=== PATIENT | female | born 1965 | race Caucasian/White ===

== ENCOUNTER 2016-11-12 15:51 | Emergency (ER) | payer MEDICAID, OTHER ==
[2016-11-12] MEDS ORDERED: Ketorolac 30 MG/ML SDV IVPUSH ONE (16:28)
[2016-11-12] MEDS ORDERED: Sodium Chloride 0.9% 1,000 ML IV ONE (16:28)
--- NOTE | 2016-11-12 16:56 | EDM.PDOC ---
ED HPI GENERAL MEDICAL PROBLEM - General Chief Complaint: General Stated Complaint: PAIN ALL OVER BODY Time Seen by Provider: 11/12/16 16:20 Source of Information: Reports: Patient History Limitations: Reports: No Limitations - History of Present Illness INITIAL COMMENTS - FREE TEXT/NARRATIVE: History of present illness: [31-year-old female comes in complaining of global ice joint pain. Patient indicates that she doesn't OLD age or why but she is having generalized pain. Patient indicates she knows she has an injury in her left knee that is scheduled to be repaired. Patient indicates that it is a meniscal tear] Review of systems: As per history of present illness and below otherwise all systems reviewed and negative. Past medical history: As per history of present illness and as reviewed below otherwise noncontributory. Surgical history: As per history of present illness and as reviewed below otherwise noncontributory. Social history: No reported history of drug or alcohol abuse. Family history: As per history of present illness and as reviewed below otherwise noncontributory. Physical exam: HEENT: Atraumatic, normocephalic, pupils reactive, negative for conjunctival pallor or scleral icterus, mucous membranes moist, throat clear, neck supple, nontender, trachea midline. Lungs: Clear to auscultation, breath sounds equal bilaterally, chest nontender. Heart: S1S2, regular, negative for clicks, rubs, or JVD. Abdomen: Soft, nondistended, nontender. Negative for masses or hepatosplenomegaly. Negative for costovertebral tenderness. Pelvis: Stable nontender. Genitourinary: Deferred. Rectal: Deferred. Extremities: Atraumatic, negative for cords or calf pain. Neurovascular unremarkable. Neuro: Awake, alert, oriented. Cranial nerves II through XII unremarkable. Cerebellum unremarkable. Motor and sensory unremarkable throughout. Exam nonfocal. Global assessment is benign save the subjective complaint as noted in history of present illness Diagnostics: [CBC, CMP, ESR] Therapeutics: [IV fluid, Toradol] Impression: [Arthritis] Plan: [Meloxicam] Definitive disposition and diagnosis as appropriate pending reevaluation and review of above. Generalized Pain Score (Numeric/FACES): 8 - Related Data Allergies Allergy/AdvReac Type Severity Reaction Status Date / Time No Known Allergies Allergy Verified 05/30/16 16:29 Home Meds: Home Meds FLUoxetine [PROzac] 80 mg PO DAILY 05/30/16 [History] Omeprazole Magnesium [Prilosec Otc] 20 mg PO DAILY 05/30/16 [History] Levothyroxine Sodium [Synthroid] 25 mcg PO DAILY 11/08/16 [History] Methylphenidate HCl [Methylphenidate ER] 36 mg PO ASDIRECTED 11/08/16 [History] Naproxen 500 mg PO ASDIRECTED PRN 11/08/16 [History] Phentermine HCl 37.5 mg PO ASDIRECTED 11/08/16 [History] buPROPion HCl [Wellbutrin Xl] 300 mg PO DAILY 11/08/16 [History] cloNIDine HCl [Catapres] 0.2 mg PO DAILY 11/08/16 [History] Meloxicam 7.5 mg PO BID #30 tablet 11/12/16 [Rx] Past Medical History HEENT History: Reports: Other (See Below) Other HEENT History: wears glasses, has top and bottom denture Gastrointestinal History: Reports: Gastritis, GERD Genitourinary History: Reports: None Musculoskeletal History: Reports: Arthritis Neurological History: Reports: Migraines Psychiatric History: Reports: Anxiety, Depression Endocrine/Metabolic History: Reports: Hypothyroidism, Obesity/BMI 30+ Hematologic History: Reports: Anemia - Past Surgical History Head Surgeries/Procedures: Reports: None Female Surgical History: Reports: Tubal Ligation Social & Family History - Family History Family Medical History: Noncontributory - Tobacco Use Smoking Status *Q: Never Smoker Second Hand Smoke Exposure: No - Caffeine Use Caffeine Use: Reports: Coffee - Recreational Drug Use Recreational Drug Use: No ED ROS GENERAL - Review of Systems Review Of Systems: See Below (See history of present illness) ED EXAM, GENERAL - Physical Exam Exam: See Below (See history of present illness) Course - Vital Signs Last Recorded V/S: Last Vital Signs Temp 36.6 C 11/12/16 16:06 Pulse 79 11/12/16 16:06 Resp 18 11/12/16 16:06 BP 139/81 11/12/16 16:06 Pulse Ox 97 11/12/16 16:06 - Orders/Labs/Meds Labs: Laboratory Tests 11/12/16 11/12/16 11/12/16 Range/Units 16:35 16:35 16:45 WBC 5.40 (4.0-11.0) K/uL RBC 4.42 (4.30-5.90) M/uL Hgb 12.6 (12.0-16.0) g/dL Hct 38.2 (36.0-46.0) % MCV 86.4 (80.0-98.0) fL MCH 28.5 (27.0-32.0) pg MCHC 33.0 (31.0-37.0) g/dL RDW Std Deviation 46.8 (28.0-62.0) fl RDW Coeff of Mehrdad 15 (11.0-15.0) % Plt Count 269 (150-400) K/uL MPV 9.10 (7.40-12.00) fL Neut % (Auto) 60.4 (48.0-80.0) % Lymph % (Auto) 26.5 (16.0-40.0) % Barron % (Auto) 10.4 (0.0-15.0) % Eos % (Auto) 2.0 (0.0-7.0) % Baso % (Auto) 0.7 (0.0-1.5) % Neut # (Auto) 3.3 (1.4-5.7) K/uL Lymph # (Auto) 1.4 (0.6-2.4) K/uL Barron # (Auto) 0.6 (0.0-0.8) K/uL Eos # (Auto) 0.1 (0.0-0.7) K/uL Baso # (Auto) 0.0 (0.0-0.1) K/uL Nucleated RBC % 0.0 /100WBC Nucleated RBCs # 0 K/uL ESR 17 (0-29) mm/hr Sodium 139 (136-146) mmol/L Potassium 3.8 (3.5-5.1) mmol/L Chloride 110 (98-110) mmol/L Carbon Dioxide 24 (21-31) mmol/L BUN 15 (6.0-23.0) mg/dL Creatinine 0.9 (0.6-1.5) mg/dL Est Cr Clr Drug Dosing 69.23 mL/min Estimated GFR (MDRD) > 60.0 ml/min Glucose 93 (60-110) mg/dL Calcium 8.9 (8.8-10.8) mg/dL Total Bilirubin 0.3 (0.1-1.5) mg/dL AST 57 H (5-40) IU/L ALT 58 H (8-54) IU/L Alkaline Phosphatase 104 (40-150) Total Protein 7.6 (6.0-8.0) g/dL Albumin 3.8 (3.5-5.0) g/dL Globulin 3.8 H (2.0-3.5) g/dL Albumin/Globulin Ratio 1.0 L (1.3-2.8) Amylase 62 (10-90) U/L Lipase 14 (7-80) U/L Urine Color YELLOW Urine Appearance CLEAR Urine pH 6.5 (5.0-8.0) Ur Specific U[place]all 1.010 (1.001-1.035) Urine Protein NEGATIVE (NEGATIVE) mg/dL Urine Glucose (UA) NEGATIVE (NEGATIVE) mg/dL Urine Ketones NEGATIVE (NEGATIVE) mg/dL Urine Occult Blood NEGATIVE (NEGATIVE) Urine Nitrite NEGATIVE (NEGATIVE) Urine Bilirubin NEGATIVE (NEGATIVE) Urine Urobilinogen 1.0 (<2.0) EU/dL Ur Leukocyte Esterase NEGATIVE (NEGATIVE) Urine RBC 0-1 (0-2/HPF) Urine WBC 0-2 (0-5/HPF) Ur Epithelial Cells FEW (NONE-FEW) Amorphous Sediment MODERATE (NEGATIVE) Urine Bacteria FEW (NEGATIVE) Meds: Medications Discontinued Medications Generic Name Dose Route Start Last Admin Trade Name Freq PRN Reason Stop Dose Admin Sodium Chloride 1,000 mls @ 999 mls/hr 11/12/16 16:28 11/12/16 16:56 Normal Saline IV 11/12/16 17:28 999 mls/hr STAT ONE Administration Ketorolac Tromethamine 30 mg 11/12/16 16:28 11/12/16 16:57 Toradol IVPUSH 11/12/16 16:29 30 mg ONETIME ONE Administration Departure - Departure Time of Disposition: 17:41 Disposition: Home, Self-Care 01 Condition: Good Clinical Impression: Joint pain - Discharge Information Forms: ED Department Discharge Additional Instructions: The following information is given to patients seen in the emergency department who are being discharged to home. This information is to outline your options for follow-up care. We provide all patients seen in our emergency department with a follow-up referral. The need for follow-up, as well as the timing and circumstances, are variable depending upon the specifics of your emergency department visit. If you don't have a primary care physician on staff, we will provide you with a referral. We always advise you to contact your personal physician following an emergency department visit to inform them of the circumstance of the visit and for follow-up with them and/or the need for any referrals to a consulting specialist. The emergency department will also refer you to a specialist when appropriate. This referral assures that you have the opportunity for follow-up care with a specialist. All of these measure are taken in an effort to provide you with optimal care, which includes your follow-up. Under all circumstances we always encourage you to contact your private physician who remains a resource for coordinating your care. When calling for follow-up care, please make the office aware that this follow-up is from your recent emergency room visit. If for any reason you are refused follow-up, please contact the [facility] Emergency Department at and asked to speak to the emergency department charge nurse. You're being prescribed a new anti-inflammatory use the meloxicam instead of the naproxen Increase her hydration decrease any sugar intake Follow-up with primary care provider one to 2 days Return to ED as needed as discussed
[2016-11-12 17:11] LABS: CHLORIDE,CL 110 mmol/L (98-110); SODIUM,NA 139 mmol/L (136-146)
[2016-11-12 18:37] VITALS: BP 133/73
== END 2016-11-12 18:08 | disposition home or self-care (01) ==
LOC: MW.ED 15:51
DX: M19.90 Unspecified osteoarthritis, unspecified site (principal); K21.9 Gastro-esophageal reflux disease without esophagitis; F41.9 Anxiety disorder, unspecified; F32.9 Major depressive disorder, single episode, unspecified; E03.9 Hypothyroidism, unspecified; E66.9 Obesity, unspecified; Z79.899 Other long term (current) drug therapy; Z86.2 Personal history of diseases of the blood and blood-forming organs and certain disorders involving the immune mechanism
CPT/HCPCS: 36415; 80053; 81001; 82150; 83690; 85025; 85652; 96361; 96374; 99283; J1885; J7040; 99282

== ENCOUNTER 2016-11-21 08:48 | Day surgery (SDC) | payer MEDICAID, OTHER ==
[~2016-11-21 08:48] MED LIST: Lactated Ringers 1,000 ML IV SCH; Lidocaine 2% 5 ML SDV ONE; Propofol 200 MG/20 ML SDV ONE; Sodium Chloride 0.9% 10 ML Syringe FLUSH PRN; Sodium Chloride 0.9% 2.5 ML Syringe FLUSH PRN; fentaNYL 100 MCG/2 ML SDV ONE
--- NOTE | 2016-11-21 09:49 | PCM.PREANE ---
Preanesthetic Assessment - Anesthesia/Transfusion/Family Hx Anesthesia History: Prior Anesthesia Without Reaction Family History of Anesthesia Reaction: No Transfusion History: No Prior Transfusion(s) Intubation History: Unknown - Review of Systems General: No Symptoms Pulmonary: No Symptoms Cardiovascular: No Symptoms Gastrointestinal: Other (occult blood positive feces) Neurological: No Symptoms Other: Reports: None - Physical Assessment NPO Status Date: 11/20/16 NPO Status Time: 23:30 O2 Sat by Pulse Oximetry: 100 Respiratory Rate: 16 Vital Signs: Last Vital Signs Temp 36.4 C 11/21/16 09:17 Pulse 74 11/21/16 09:17 Resp 16 11/21/16 09:17 BP 133/69 11/21/16 09:17 Pulse Ox 100 11/21/16 09:17 Height: 1.68 m Weight: 90.718 kg ASA Class: 2 Mental Status: Alert & Oriented x3 Airway Class: Mallampati = 2 Dentition: Reports: Partial (upper and lower (sides)) Thyro-Mental Finger Breadths: 3 Mouth Opening Finger Breadths: 3 ROM/Head Extension: Full Lungs: Clear to auscultation, Normal respiratory effort Cardiovascular: Regular Rate, Regular Rhythm - Lab Values: Laboratory Last Values Urine HCG, Qual NEGATIVE (NEGATIVE) 11/21/16 08:52 - Allergies Allergies/Adverse Reactions: Allergies Allergy/AdvReac Type Severity Reaction Status Date / Time No Known Allergies Allergy Verified 05/30/16 16:29 - Blood Blood Available: No - Anesthesia Plan Pre-Op Medication Ordered: None - Acknowledgements Anesthesia Type Planned: MAC Pt an Appropriate Candidate for the Planned Anesthesia: Yes Alternatives and Risks of Anesthesia Discussed w Pt/Guardian: Yes Pt/Guardian Understands and Agrees with Anesthesia Plan: Yes PreAnesthesia Questionnaire HEENT History: Reports: Other (See Below) Other HEENT History: wears glasses, has top and bottom denture Gastrointestinal History: Reports: Colon Polyp, Gastritis, GERD Genitourinary History: Reports: None Musculoskeletal History: Reports: Arthritis Neurological History: Reports: Migraines Psychiatric History: Reports: ADD, Anxiety, Bipolar, Depression, Other (See Below) (insomnia) Endocrine/Metabolic History: Reports: Hypothyroidism, Obesity/BMI 30+ Hematologic History: Reports: Anemia - Past Surgical History Head Surgeries/Procedures: Reports: None GI Surgical History: Reports: Colonoscopy, EGD Female Surgical History: Reports: Tubal Ligation - SUBSTANCE USE Smoking Status *Q: Never Smoker Second Hand Smoke Exposure: No Recreational Drug Use History: No - HOME MEDS Home Medications: Home Meds FLUoxetine [PROzac] 80 mg PO DAILY 05/30/16 [History] Omeprazole Magnesium [Prilosec Otc] 20 mg PO DAILY 05/30/16 [History] Levothyroxine Sodium [Synthroid] 25 mcg PO DAILY 11/08/16 [History] Methylphenidate HCl [Methylphenidate ER] 36 mg PO ASDIRECTED 11/08/16 [History] Naproxen 500 mg PO ASDIRECTED PRN 11/08/16 [History] Phentermine HCl 37.5 mg PO ASDIRECTED 11/08/16 [History] buPROPion HCl [Wellbutrin Xl] 300 mg PO DAILY 11/08/16 [History] cloNIDine HCl [Catapres] 0.2 mg PO DAILY 11/08/16 [History] Meloxicam 7.5 mg PO BID #30 tablet 11/12/16 [Rx] - CURRENT (IN HOUSE) MEDS Current Meds: Current Medications Lactated Ringer's (Ringers, Lactated) 1,000 mls @ 125 mls/hr IV ASDIRECTED [facility] Last Admin: 11/21/16 09:07 Dose: 125 mls/hr Sodium Chloride (Saline Flush) 10 ml FLUSH ASDIRECTED PRN PRN Reason: Keep Vein Open Sodium Chloride (Saline Flush) 2.5 ml FLUSH ASDIRECTED PRN PRN Reason: Keep Vein Open Discontinued Medications Fentanyl (Sublimaze) Confirm Administered Dose 100 mcg .ROUTE .STK-MED ONE Stop: 11/21/16 07:37 Lidocaine (Xylocaine-Mpf 2%) Confirm Administered Dose 5 ml .ROUTE .STK-MED ONE Stop: 11/21/16 07:37 Propofol (Diprivan 20 Ml) Confirm Administered Dose 400 mg .ROUTE .STK-MED ONE Stop: 11/21/16 07:37
[2016-11-21] MEDS ORDERED: Midazolam 1 MG/ML 2 ML SDV ONE (10:45)
[2016-11-21] MEDS ORDERED: Glycopyrrolate 0.2 MG/ML SDV ONE (10:55)
[2016-11-21] MEDS ORDERED: Propofol 200 MG/20 ML SDV ONE (10:55)
--- NOTE | 2016-11-21 11:16 | PCM.OPNOTE ---
- General Post-Op/Procedure Note Date of Surgery/Procedure: 11/21/16 Operative Procedure(s): Diagnostic EGD & Colonoscopy Findings: 1. Gastritis, 2. Normal appearing colon Pre Op Diagnosis: 1. FOBT positive, 2. Diagnostic EGD & Colonoscopy Post-Op Diagnosis: 1. Gastritis, 2. Normal appearing colon Anesthesia Technique: General LMA Primary Surgeon: Michelle Zarate Pathology: 1 sample sent from each of Pyloris, Antrum, Body and Fundus EBL in mLs: 0 Complications: None Condition: Good
[2016-11-21 11:46] VITALS: BP 134/62
--- NOTE | 2016-11-22 00:32 | OR ---
SURGEON: CARRI ARAUJO MD DATE OF PROCEDURE: 11/21/2016 PREOPERATIVE DIAGNOSIS: Positive fecal occult blood test. POSTOPERATIVE DIAGNOSIS: Gastritis. PROCEDURE PERFORMED: Diagnostic EGD and colonoscopy. TECHNICAL STENOGRAPHER: Dr. Jorge France, hvac technician residential. ANESTHESIA: General LMA. INSTRUMENT USED: Olympus endoscope and Olympus colonoscope. EXTENT OF EXAM: To the second portion of the duodenum, to the cecum. PREPARATION: Good. LIMITATIONS: None. INDICATIONS: The patient is a 51-year-old female, who presents with a positive fecal occult blood test. The patient has a history of reflux and takes omeprazole. The patient has had a colonoscopy done in the past but does not remember the results of this. We discussed the need for diagnostic EGD and colonoscopy. I discussed the procedure as well as expected perioperative course. I discussed the risks, including bleeding, infection, or perforation. The patient verbalized understanding and wishes to proceed. PROCEDURE IN DETAIL: The patient was brought into the endoscopy suite and placed in a beach chair position. A time-out was completed verifying the patient's name, age, date of , allergies, and procedure to be performed. General LMA anesthesia was induced. Continuous oxygen was provided throughout the case through the LMA device. After adequate sedation was achieved, I advanced my scope through the specialized LMA device into the esophagus. The scope was then advanced under direct visualization to the level of 2nd portion of duodenum. This appeared normal and a photograph was taken. The scope was then brought back and I examined the remainder of the upper GI tract. The duodenum appeared normal. On inspection of the gastric mucosa, it appeared inflamed and nodular suggestive of moderate to severe gastritis. Photograph was taken of the pylorus and the GE junction, which all appeared normal. Multiple biopsies were taken of the gastric mucosa and sent to pathology. The biopsy sites were at the pylorus, antrum, fundus, and body. The scope was then brought into the esophagus and a photograph was taken of the GE junction, which appeared normal. The distal esophagus did not show any evidence of inflammation or ulceration. The remainder of the esophageal mucosa appeared free of pathology. The scope was then removed from the patient and this portion of the procedure terminated. The patient was then placed in the left lateral decubitus position. A digital rectal exam was performed, which was normal. A well lubricated colonoscope was then inserted into the rectum and advanced under direct visualization to the level of the cecum. The cecum was identified by both visual and anatomic landmarks. A photograph was taken of the cecal cap. I attempted to retroflex the scope within the cecum, however, was unable to do so due to looping of the scope more proximally. The scope was straightened out and fully withdrawn while examining the color, texture, anatomy, and integrity of mucosa from the cecum to the anal canal. This revealed normal colonic mucosa. The scope was then brought into the rectum and retroflexed to allow visualization of the anal canal opening. This appeared normal and the photographs were taken. The scope was straightened out and removed from the patient. The cecum to anus time was 9 minutes. The patient tolerated the procedure well and was taken to PACU in stable condition. ENDOSCOPIC DIAGNOSIS: Gastritis. RECOMMENDATIONS: I will start the patient on pantoprazole and DC her omeprazole. I will also start her on sucralfate. The patient should see me in 2 weeks and will follow up with her regarding the endoscopic biopsy pathology. DIVINA MCGUIRE /[id number] HUDSON
== END 2016-11-21 11:55 | disposition home or self-care (01) ==
LOC: MW.SDS 08:48
PROVIDERS: ATTEND Surgery
PROC: 0DJD8ZZ Inspection of Lower Intestinal Tract, Via Natural or Artificial Opening Endoscopic (ICD-10-PCS; principal; 2016-11-21)
PROC: 0DB78ZX Excision of Stomach, Pylorus, Via Natural or Artificial Opening Endoscopic, Diagnostic (ICD-10-PCS; 2016-11-21)
DX: K29.40 Chronic atrophic gastritis without bleeding (principal); M17.12 Unilateral primary osteoarthritis, left knee; F31.9 Bipolar disorder, unspecified; K21.9 Gastro-esophageal reflux disease without esophagitis; E66.9 Obesity, unspecified; E03.9 Hypothyroidism, unspecified; F90.9 Attention-deficit hyperactivity disorder, unspecified type; F41.9 Anxiety disorder, unspecified; Z98.51 Tubal ligation status; Z98.890 Other specified postprocedural states; Z79.899 Other long term (current) drug therapy; Z68.36 Body mass index [BMI] 36.0-36.9, adult
CPT/HCPCS: 43239; 45378; 81025; 88305; 88312; J2250; J3010; J7120; 00740; J2704

== ENCOUNTER 2016-12-03 10:06 | Day surgery (SDC) | payer MEDICAID, OTHER ==
[~2016-12-03 10:06] MED LIST changes: +Acetaminophen/HYDROcodone 325-5 MG Tab PO PRN; +Lidocaine 1% 50 ML MDV ONE; -Lidocaine 2% 5 ML SDV ONE; -Propofol 200 MG/20 ML SDV ONE; -Sodium Chloride 0.9% 10 ML Syringe FLUSH PRN; -Sodium Chloride 0.9% 2.5 ML Syringe FLUSH PRN; +ceFAZolin 2 GM in Premix Bag 1 BAG IV SCH; -fentaNYL 100 MCG/2 ML SDV ONE
[2016-12-03] MEDS ORDERED: fentaNYL 100 MCG/2 ML SDV ONE ×2 (10:26→11:28)
[2016-12-03] MEDS ORDERED: Propofol 200 MG/20 ML SDV ONE (10:26)
[2016-12-03] MEDS ORDERED: Ondansetron 4 MG/2 ML SDV ONE (10:26)
[2016-12-03] MEDS ORDERED: Midazolam 1 MG/ML 2 ML SDV ONE (10:26)
--- NOTE | 2016-12-03 11:10 | PCM.PREANE ---
Preanesthetic Assessment - Procedure Proposed Procedure: Arthroscopy left knee - Anesthesia/Transfusion/Family Hx Anesthesia History: Prior Anesthesia Without Reaction Family History of Anesthesia Reaction: No Transfusion History: No Prior Transfusion(s) Intubation History: Unknown - Review of Systems General: Other Pulmonary: No Symptoms Cardiovascular: No Symptoms Gastrointestinal: Other (GERD tx with protonix) Neurological: Headache (hx of migraine HAs) Other: Reports: Depression (bipolar diagnosis) - Physical Assessment NPO Status Date: 12/02/16 NPO Status Time: 22:00 O2 Sat by Pulse Oximetry: 99 Respiratory Rate: 16 Vital Signs: Last Vital Signs Temp 97.2 F 12/03/16 10:18 Pulse 69 12/03/16 10:18 Resp 16 12/03/16 10:18 BP 126/66 12/03/16 10:18 Pulse Ox 99 12/03/16 10:18 Height: 5 ft 6 in Weight: 200 lb ASA Class: 2 Mental Status: Alert & Oriented x3 Airway Class: Mallampati = 1 Dentition: Reports: Normal Dentition Thyro-Mental Finger Breadths: 3 Mouth Opening Finger Breadths: 3 ROM/Head Extension: Full Lungs: Clear to Auscultation, Normal Respiratory Effort Cardiovascular: Regular Rate, Regular Rhythm, No Murmurs - Lab Values: Laboratory Last Values Urine HCG, Qual NEGATIVE (NEGATIVE) 12/03/16 10:08 - Allergies Allergies/Adverse Reactions: Allergies Allergy/AdvReac Type Severity Reaction Status Date / Time No Known Allergies Allergy Verified 05/30/16 16:29 - Blood Blood Available: No Product(s) Available: None - Anesthesia Plan Pre-Op Medication Ordered: Antacids - Acknowledgements Anesthesia Type Planned: General Anesthesia (LMA vs OETT) Pt an Appropriate Candidate for the Planned Anesthesia: Yes Alternatives and Risks of Anesthesia Discussed w Pt/Guardian: Yes Pt/Guardian Understands and Agrees with Anesthesia Plan: Yes PreAnesthesia Questionnaire HEENT History: Reports: Other (See Below) Other HEENT History: wears glasses, has top and bottom denture Gastrointestinal History: Reports: Colon Polyp, Gastritis, GERD Genitourinary History: Reports: None Musculoskeletal History: Reports: Arthritis Neurological History: Reports: Migraines Psychiatric History: Reports: ADD, Anxiety, Bipolar, Depression, Other (See Below) Endocrine/Metabolic History: Reports: Hypothyroidism, Obesity/BMI 30+ Hematologic History: Reports: Anemia - Past Surgical History Head Surgeries/Procedures: Reports: None GI Surgical History: Reports: Colonoscopy, EGD Female Surgical History: Reports: Tubal Ligation - SUBSTANCE USE Smoking Status *Q: Never Smoker Second Hand Smoke Exposure: No Recreational Drug Use History: No - HOME MEDS Home Medications: Home Meds FLUoxetine [PROzac] 80 mg PO DAILY 05/30/16 [History] Levothyroxine Sodium [Synthroid] 25 mcg PO DAILY 11/08/16 [History] Methylphenidate HCl [Methylphenidate ER] 36 mg PO ASDIRECTED 11/08/16 [History] Naproxen 500 mg PO ASDIRECTED PRN 11/08/16 [History] Phentermine HCl 37.5 mg PO ASDIRECTED 11/08/16 [History] buPROPion HCl [Wellbutrin Xl] 300 mg PO DAILY 11/08/16 [History] cloNIDine HCl [Catapres] 0.2 mg PO DAILY 11/08/16 [History] Meloxicam 7.5 mg PO BID #30 tablet 11/12/16 [Rx] Pantoprazole [ProTONIX] 40 mg PO ACBREAKFAST #30 tab.cr 11/21/16 [Rx] Sucralfate 1 gm PO TIDAC #42 tablet 11/21/16 [Rx] - CURRENT (IN HOUSE) MEDS Current Meds: Current Medications Hydrocodone Bitart/Acetaminophen (Sugar Tree 325-5 Mg) 1 - 2 tab PO Q4H PRN PRN Reason: Pain Lactated Ringer's (Ringers, Lactated) 1,000 mls @ 100 mls/hr IV ASDIRECTED [facility] Last Admin: 12/03/16 10:26 Dose: 100 mls/hr Cefazolin Sodium/Dextrose 2 gm (/ Premix) 50 mls @ 100 mls/hr IV ONCALL [facility] Discontinued Medications Hydrocodone Bitart/Acetaminophen ([place] 325-5 Mg) 1 - 2 tab PO Q4H PRN PRN Reason: Pain Fentanyl (Sublimaze) Confirm Administered Dose 100 mcg .ROUTE .STK-MED ONE Stop: 12/03/16 10:27 Lactated Ringer's (Ringers, Lactated) 1,000 mls @ 100 mls/hr IV ASDIRECTED [facility] Cefazolin Sodium/Dextrose 2 gm (/ Premix) 50 mls @ 100 mls/hr IV ONCALL [facility] Lidocaine HCl (Xylocaine 1%) Confirm Administered Dose 50 ml .ROUTE .STK-MED ONE Stop: 12/03/16 07:39 Midazolam HCl (Versed 1 Mg/Ml) Confirm Administered Dose 2 mg .ROUTE .STK-MED ONE Stop: 12/03/16 10:27 Ondansetron HCl (Zofran) Confirm Administered Dose 4 mg .ROUTE .STK-MED ONE Stop: 12/03/16 10:27 Propofol (Diprivan 20 Ml) Confirm Administered Dose 200 mg .ROUTE .STK-MED ONE Stop: 12/03/16 10:27
[2016-12-03] MEDS ORDERED: Famotidine 20 MG/2 ML SDV ONE (11:21)
[2016-12-03] MEDS ORDERED: Pantoprazole 40 MG in Sodium Chloride 0.9% 10 ML IVPUSH ONE (11:30)
[2016-12-03] MEDS ORDERED: fentaNYL 100 MCG/2 ML SDV IVPUSH PRN (11:31)
[2016-12-03] MEDS ORDERED: Dexamethasone 4 MG/ML 5 ML MDV ONE (11:32)
--- NOTE | 2016-12-03 11:59 | PCM.OPNOTE ---
- General Post-Op/Procedure Note Date of Surgery/Procedure: 12/03/16 Operative Procedure(s): L knee arthroscopy with partial medial menisectomy Post-Op Diagnosis: DJD left knee. Left knee medial meniscus tear Anesthesia Technique: General LMA Primary Surgeon: Arcelia Martines [employer] Mason: Anuradha Mohamud in mLs: 5 Condition: Good Free Text/Narrative:: tt=13 min #[id number]
--- NOTE | 2016-12-03 12:26 | OR ---
SURGEON: Arcelia Martines MD DATE OF PROCEDURE: 12/03/2016 PREOPERATIVE DIAGNOSIS: Left knee medial meniscus tear. POSTOPERATIVE DIAGNOSES: 1. Left knee medial meniscus tear. 2. Degenerative joint disease, left knee. PROCEDURE: Left knee arthroscopy with partial medial meniscectomy. PROVIDER RELATIONS SPECIALIST: Anuradha Mohamud PA-C. ANESTHESIA: General. ESTIMATED BLOOD LOSS: 5 mL. TOURNIQUET TIME: 13 minutes. COMPLICATIONS: None. DVT PROPHYLAXIS: Not indicated. IMPLANTS USED: None. BRIEF HISTORY: Tiffany is a 51-year-old female, who has had complaint of progressive left knee pain. She had failed conservative treatment. An MRI did show a tear of the medial meniscus. Due to her lack of response to conservative treatment, I did recommend surgical intervention. The risks and goals of procedure were discussed with the patient and were documented preoperatively. She agreed to proceed. DESCRIPTION OF PROCEDURE: The patient was properly identified and brought to the operating room. She was transferred from the OR cart and placed on the operating table in supine position. General anesthesia was administered. After adequate anesthesia was obtained, a well-padded tourniquet was applied to the left lower extremity. The left lower extremity was then prepped in standard fashion using ChloraPrep solution. It was then sterilely draped. A time-out was performed to ensure correct site and procedure. Preoperative antibiotics were given. The surgical site had been marked preoperatively. An Esmarch was used to exsanguinate the left lower extremity and the tourniquet was inflated to 250 mmHg. A lateral portal arthrotomy was established. Blunt trocar and cannula were introduced into the suprapatellar pouch. Camera, inflow, and outflow were assembled. She showed no signs of synovitis. The patellofemoral joint was visualized. Mild grade 1 to grade 2 chondromalacia was noted diffusely. The patella appeared to track centrally. I then extended down the lateral and medial gutter. No loose bodies were identified. I then entered the medial compartment. A medial portal arthrotomy was established. A blunt probe was inserted. The meniscus was probed. She was found to have a radial tear along the posterior horn of the meniscus. This was resected using a combination of biters and shaver. The meniscus was again probed and found to be stable. She showed diffuse grade 2 chondromalacia along the medial femoral condyle as well as the medial tibial plateau. I then entered the notch. Both the ACL and PCL were visualized and probed and found to be intact. I then entered the lateral compartment. The lateral meniscus was probed. It had minor degenerative fraying centrally, however, no instability was noted. Grade 2 to grade 3 chondromalacia was noted along the medial aspect of the lateral tibial plateau. No loose cartilaginous flaps were appreciated. The lateral femoral condyle showed grade 2 chondromalacia diffusely. Instruments were then removed from the knee. The portal sites were closed with 3-0 nylon. Lidocaine 1% was injected along the portal tracts. Xeroform gauze was placed over the wound and a bulky dressing was applied. The tourniquet was then deflated. She was awakened from her anesthetic and transferred back to the operating room cart. She was brought to recovery room in stable condition. All needle and sponge counts were correct. CARLA / SHAYLA /[id number]
[2016-12-03 13:11] VITALS: BP 127/67
--- NOTE | 2016-12-03 14:04 | PCM.POSTAN ---
POST ANESTHESIA ASSESSMENT - MENTAL STATUS Mental Status: Alert, Oriented - RESPIRATORY Respiratory Status: Respiratory Rate WNL, Airway Patent, O2 Saturation Stable - CARDIOVASCULAR CV Status: Pulse Rate WNL, Blood Pressure Stable - GASTROINTESTINAL GI Status: No Symptoms - POST OP HYDRATION Hydration Status: Adequate & Stable
== END 2016-12-03 13:55 | disposition home or self-care (01) ==
LOC: MW.SDS 10:06
PROVIDERS: ATTEND Orthopaedic Surgery
PROC: 0SBD4ZZ Excision of Left Knee Joint, Percutaneous Endoscopic Approach (ICD-10-PCS; principal; 2016-12-03)
DX: S83.242A Other tear of medial meniscus, current injury, left knee, initial encounter (principal); M65.862 Other synovitis and tenosynovitis, left lower leg; M94.262 Chondromalacia, left knee; M17.12 Unilateral primary osteoarthritis, left knee; K21.9 Gastro-esophageal reflux disease without esophagitis; M19.90 Unspecified osteoarthritis, unspecified site; F41.9 Anxiety disorder, unspecified; F31.9 Bipolar disorder, unspecified; E03.9 Hypothyroidism, unspecified; E66.9 Obesity, unspecified; Z87.19 Personal history of other diseases of the digestive system; Z98.51 Tubal ligation status; Z98.890 Other specified postprocedural states; Z79.899 Other long term (current) drug therapy; Z68.35 Body mass index [BMI] 35.0-35.9, adult
CPT/HCPCS: 29881; 81025; A9270; J0690; J1100; J2250; J2405; J3010; J7120; 01400; 88304; J2704

== ENCOUNTER 2017-06-21 19:57 | Emergency (ER) | payer MEDICAID ==
--- NOTE | 2017-06-21 20:21 | EDM.PDOC ---
ED HPI GENERAL MEDICAL PROBLEM - General Chief Complaint: ENT Problem Stated Complaint: PT HAS TOOTHACHE Time Seen by Provider: 06/21/17 20:13 - History of Present Illness INITIAL COMMENTS - FREE TEXT/NARRATIVE: HISTORY AND PHYSICAL: History of present illness: Patient 52-year-old female presents with a concern of dentalgia she was recently seen by dentist and treated for a dental abscess. Included a partial extraction of a left lower molar. Patient denies fever chills nausea or vomiting Review of systems: As per history of present illness and below otherwise all systems reviewed and negative. Past medical history: As per history of present illness and as reviewed below otherwise noncontributory. Surgical history: As per history of present illness and as reviewed below otherwise noncontributory. Social history: No reported history of drug or alcohol abuse. Family history: As per history of present illness and as reviewed below otherwise noncontributory. Physical exam: HEENT: Atraumatic, normocephalic, pupils reactive, negative for conjunctival pallor or scleral icterus, mucous membranes moist, throat clear, neck supple, nontender, trachea midline. Patient has good hemostasis and a partial extraction of a left lower molar noted with some root and base of the tooth remaining. Lungs: Clear to auscultation, breath sounds equal bilaterally, chest nontender. Heart: S1S2, regular, negative for clicks, rubs, or JVD. Abdomen: Soft, nondistended, nontender. Negative for masses or hepatosplenomegaly. Negative for costovertebral tenderness. Pelvis: Stable nontender. Genitourinary: Deferred. Rectal: Deferred. Extremities: Atraumatic, negative for cords or calf pain. Neurovascular unremarkable. Neuro: Awake, alert, oriented. Cranial nerves II through XII unremarkable. Cerebellum unremarkable. Motor and sensory unremarkable throughout. Exam nonfocal. Diagnostics: None Therapeutics: None Impression: #1 dentalgia #2 history of partial tooth extraction left lower molar Definitive disposition and diagnosis as appropriate pending reevaluation and review of above. tooth Pain Score (Numeric/FACES): 10 - Related Data Allergies Allergy/AdvReac Type Severity Reaction Status Date / Time No Known Allergies Allergy Verified 06/21/17 20:05 Home Meds: Home Meds FLUoxetine [PROzac] 80 mg PO DAILY 05/30/16 [History] Levothyroxine Sodium [Synthroid] 0.125 mcg PO DAILY 11/08/16 [History] Methylphenidate HCl [Methylphenidate ER] 20 mg PO ASDIRECTED 11/08/16 [History] Naproxen 500 mg PO ASDIRECTED PRN 11/08/16 [History] Phentermine HCl 37.5 mg PO ASDIRECTED 11/08/16 [History] buPROPion HCl [Wellbutrin Xl] 300 mg PO DAILY 11/08/16 [History] cloNIDine HCl [Catapres] 0.2 mg PO DAILY 11/08/16 [History] Meloxicam 7.5 mg PO BID #30 tablet 11/12/16 [Rx] Pantoprazole [ProTONIX] 40 mg PO ACBREAKFAST #30 tab.cr 11/21/16 [Rx] Sucralfate 1 gm PO TIDAC #42 tablet 11/21/16 [Rx] Acetaminophen/HYDROcodone [[place] 325-5 MG] 1 - 2 tab PO Q4H PRN #80 tablet 12/03 [Rx] Past Medical History HEENT History: Reports: Other (See Below) Other HEENT History: wears glasses, has top and bottom denture Gastrointestinal History: Reports: Colon Polyp, Gastritis, GERD Genitourinary History: Reports: None Musculoskeletal History: Reports: Arthritis Neurological History: Reports: Migraines Psychiatric History: Reports: ADD, Anxiety, Bipolar, Depression, Other (See Below) Endocrine/Metabolic History: Reports: Hypothyroidism, Obesity/BMI 30+ Hematologic History: Reports: Anemia - Past Surgical History GI Surgical History: Reports: Colonoscopy, EGD Female Surgical History: Reports: Tubal Ligation Social & Family History - Family History Family Medical History: Noncontributory - Tobacco Use Smoking Status *Q: Never Smoker Second Hand Smoke Exposure: No - Caffeine Use Caffeine Use: Reports: Coffee - Recreational Drug Use Recreational Drug Use: No ED ROS GENERAL - Review of Systems Review Of Systems: ROS reveals no pertinent complaints other than HPI. ED EXAM, GENERAL - Physical Exam Exam: See Below (See dictation) Course - Vital Signs Last Recorded V/S: Last Vital Signs Temp 36.3 C 06/21/17 19:57 Pulse 73 06/21/17 19:57 Resp 18 06/21/17 19:57 BP 128/61 06/21/17 19:57 Pulse Ox 100 06/21/17 19:57 Departure - Departure Time of Disposition: 20:20 Disposition: Home, Self-Care 01 Condition: Good Clinical Impression: Dentalgia - Discharge Information Referrals: PCP,None [Primary Care Provider] - Additional Instructions: The following information is given to patients seen in the emergency department who are being discharged to home. This information is to outline your options for follow-up care. We provide all patients seen in our emergency department with a follow-up referral. The need for follow-up, as well as the timing and circumstances, are variable depending upon the specifics of your emergency department visit. If you don't have a primary care physician on staff, we will provide you with a referral. We always advise you to contact your personal physician following an emergency department visit to inform them of the circumstance of the visit and for follow-up with them and/or the need for any referrals to a consulting specialist. The emergency department will also refer you to a specialist when appropriate. This referral assures that you have the opportunity for followup care with a specialist. All of these measure are taken in an effort to provide you with optimal care, which includes your followup. Under all circumstances we always encourage you to contact your private physician who remains a resource for coordinating your care. When calling for followup care, please make the office aware that this follow-up is from your recent emergency room visit. If for any reason you are refused follow-up, please contact the [facility] emergency department at and asked to speak to the emergency department charge nurse. Pen-Vee K as prescribed Motrin/Tylenol as directed follow-up dentist call to schedule appointment JACEK and return as needed as discussed
[2017-06-21 21:05] VITALS: BP 127/73
== END 2017-06-21 20:40 | disposition home or self-care (01) ==
LOC: MW.ED 19:57
DX: K08.89 Other specified disorders of teeth and supporting structures (principal); F31.9 Bipolar disorder, unspecified; K21.9 Gastro-esophageal reflux disease without esophagitis; E03.9 Hypothyroidism, unspecified; Z98.818 Other dental procedure status; Z79.899 Other long term (current) drug therapy
CPT/HCPCS: 99283

== ENCOUNTER 2017-11-13 21:21 | Emergency (ER) | payer MEDICAID ==
--- NOTE | 2017-11-13 21:44 | EDM.PDOC ---
ED HPI GENERAL MEDICAL PROBLEM - General Chief Complaint: Eye Problems Stated Complaint: PAINFUL, BLOOD SHOT LEFT EYE Time Seen by Provider: 11/13/17 21:31 - History of Present Illness INITIAL COMMENTS - FREE TEXT/NARRATIVE: HISTORY AND PHYSICAL: History of present illness: Patient is a 52-year-old female presents with concern of redness in her left eye she noted it today there is no other complaints Review of systems: As per history of present illness and below otherwise all systems reviewed and negative. Past medical history: As per history of present illness and as reviewed below otherwise noncontributory. Surgical history: As per history of present illness and as reviewed below otherwise noncontributory. Social history: No reported history of drug or alcohol abuse. Family history: As per history of present illness and as reviewed below otherwise noncontributory. Physical exam: HEENT: Atraumatic, normocephalic, pupils reactive, negative for conjunctival pallor or scleral icterus, mucous membranes moist, throat clear, neck supple, nontender, trachea midline. Left subconjunctival hemorrhage noted anterior chamber clear visual acuity per nursing Lungs: Clear to auscultation, breath sounds equal bilaterally, chest nontender. Heart: S1S2, regular, negative for clicks, rubs, or JVD. Abdomen: Soft, nondistended, nontender. Negative for masses or hepatosplenomegaly. Negative for costovertebral tenderness. Pelvis: Stable nontender. Genitourinary: Deferred. Rectal: Deferred. Extremities: Atraumatic, negative for cords or calf pain. Neurovascular unremarkable. Neuro: Awake, alert, oriented. Cranial nerves II through XII unremarkable. Cerebellum unremarkable. Motor and sensory unremarkable throughout. Exam nonfocal. Diagnostics: None Therapeutics: None Impression: #1 subconjunctival hemorrhage Definitive disposition and diagnosis as appropriate pending reevaluation and review of above. - Related Data Allergies Allergy/AdvReac Type Severity Reaction Status Date / Time No Known Allergies Allergy Verified 06/21/17 20:05 Home Meds: Home Meds FLUoxetine [PROzac] 80 mg PO DAILY 05/30/16 [History] Levothyroxine Sodium [Synthroid] 0.125 mcg PO DAILY 11/08/16 [History] Methylphenidate HCl [Methylphenidate ER] 20 mg PO ASDIRECTED 11/08/16 [History] Phentermine HCl 37.5 mg PO ASDIRECTED 11/08/16 [History] buPROPion HCl [Wellbutrin Xl] 300 mg PO DAILY 11/08/16 [History] cloNIDine HCl [Catapres] 0.2 mg PO DAILY 11/08/16 [History] Pantoprazole [ProTONIX] 40 mg PO ACBREAKFAST #30 tab.cr 11/21/16 [Rx] Past Medical History - Past Health History Medical/Surgical History: Denies Medical/Surgical History HEENT History: Reports: Other (See Below) Other HEENT History: wears glasses, has top and bottom denture Gastrointestinal History: Reports: Colon Polyp, Gastritis, GERD Genitourinary History: Reports: None Musculoskeletal History: Reports: Arthritis Neurological History: Reports: Migraines Psychiatric History: Reports: ADD, Anxiety, Bipolar, Depression, Other (See Below) Endocrine/Metabolic History: Reports: Hypothyroidism, Obesity/BMI 30+ Hematologic History: Reports: Anemia - Past Surgical History GI Surgical History: Reports: Colonoscopy, EGD Female Surgical History: Reports: Tubal Ligation Social & Family History - Family History Family Medical History: Noncontributory - Caffeine Use Caffeine Use: Reports: Coffee ED ROS GENERAL - Review of Systems Review Of Systems: ROS reveals no pertinent complaints other than HPI. ED EXAM GENERAL W FULL EYE - Physical Exam Exam: See Below (See dictation) Departure - Departure Time of Disposition: 21:44 Disposition: Home, Self-Care 01 Condition: Good Clinical Impression: Subconjunctival hemorrhage - Discharge Information Referrals: PCP,None [Primary Care Provider] - Additional Instructions: The following information is given to patients seen in the emergency department who are being discharged to home. This information is to outline your options for follow-up care. We provide all patients seen in our emergency department with a follow-up referral. The need for follow-up, as well as the timing and circumstances, are variable depending upon the specifics of your emergency department visit. If you don't have a primary care physician on staff, we will provide you with a referral. We always advise you to contact your personal physician following an emergency department visit to inform them of the circumstance of the visit and for follow-up with them and/or the need for any referrals to a consulting specialist. The emergency department will also refer you to a specialist when appropriate. This referral assures that you have the opportunity for followup care with a specialist. All of these measure are taken in an effort to provide you with optimal care, which includes your followup. Under all circumstances we always encourage you to contact your private physician who remains a resource for coordinating your care. When calling for followup care, please make the office aware that this follow-up is from your recent emergency room visit. If for any reason you are refused follow-up, please contact the [facility] emergency department at and asked to speak to the emergency department charge nurse. [facility] [address] [place] [address] Follow-up ophthalmology clinic above call to schedule appointment return as needed as discussed
[2017-11-14 03:44] VITALS: BP 113/59
== END 2017-11-13 22:35 | disposition home or self-care (01) ==
LOC: MW.ED 21:21
DX: H11.32 Conjunctival hemorrhage, left eye (principal); E03.9 Hypothyroidism, unspecified; F31.9 Bipolar disorder, unspecified; F41.9 Anxiety disorder, unspecified; Z79.899 Other long term (current) drug therapy
CPT/HCPCS: 99282

== ENCOUNTER 2018-05-31 20:39 | Emergency (ER) | payer MEDICAID ==
[2018-05-31] MEDS ORDERED: Sodium Chloride 0.9% 1,000 ML IV ONE (20:42)
[2018-05-31 20:44] VITALS: BP 111/48
--- NOTE | 2018-05-31 20:44 | EDM.PDOC ---
ED HPI GENERAL MEDICAL PROBLEM - General Chief Complaint: Back Pain or Injury Stated Complaint: PAIN ALL OVER HER BODY Time Seen by Provider: 05/31/18 20:43 Source of Information: Reports: Patient - History of Present Illness INITIAL COMMENTS - FREE TEXT/NARRATIVE: HISTORY AND PHYSICAL: History of present illness: Patient arrives via EMS She was recently diagnosed with lupus, she states she has pain all over her body , EMS and provided fentanyl 100 g IV, she arrives in no apparent distress kidney continues to complain of low back pain 5 out of 10 no fever nausea vomiting chills sweats no chest pain shortness breath headache dizziness palpitation no bowel or urine symptoms Review of systems: As per history of present illness and below otherwise all systems reviewed and negative. Past medical history: As per history of present illness and as reviewed below otherwise noncontributory. Surgical history: As per history of present illness and as reviewed below otherwise noncontributory. Social history: No reported history of drug or alcohol abuse. Family history: As per history of present illness and as reviewed below otherwise noncontributory. Physical exam: HEENT: Atraumatic, normocephalic, pupils reactive, negative for conjunctival pallor or scleral icterus, mucous membranes moist, throat clear, neck supple, nontender, trachea midline. Lungs: Clear to auscultation, breath sounds equal bilaterally, chest nontender. Heart: S1S2, regular, negative for clicks, rubs, or JVD. Abdomen: Soft, nondistended, nontender. Negative for masses or hepatosplenomegaly. Negative for costovertebral tenderness. Pelvis: Stable nontender. Genitourinary: Deferred. Rectal: Deferred. Extremities: Atraumatic, negative for cords or calf pain. Neurovascular unremarkable. Neuro: Awake, alert, oriented. Cranial nerves II through XII unremarkable. Cerebellum unremarkable. Motor and sensory unremarkable throughout. Exam nonfocal. Diagnostics: [CBC CMP UA troponin lipase EKG Chest 1 view ] Therapeutics: NS 1 L bolus ] Velpen 5 per 325 #30 no refill Follow-up with Dr. shrestha She was kept for extended observation. Due to the dosing EMS provided, she elicits no further pain Impression: [] pain-resolved History of lupus Definitive disposition and diagnosis as appropriate pending reevaluation and review of above. Back Pain Score (Numeric/FACES): 6 - Related Data Allergies Allergy/AdvReac Type Severity Reaction Status Date / Time No Known Allergies Allergy Verified 05/31/18 20:43 Home Meds: Home Meds FLUoxetine [PROzac] 0 mg PO DAILY 05/30/16 [History] Levothyroxine Sodium [Synthroid] 0 mcg PO DAILY 11/08/16 [History] Methylphenidate HCl [Methylphenidate ER] 20 mg PO ASDIRECTED 11/08/16 [History] Phentermine HCl 37.5 mg PO ASDIRECTED 11/08/16 [History] buPROPion HCl [Wellbutrin Xl] 0 mg PO DAILY 11/08/16 [History] cloNIDine HCl [Catapres] 0.2 mg PO DAILY 11/08/16 [History] Pantoprazole [ProTONIX] 40 mg PO ACBREAKFAST #30 tab.cr 11/21/16 [Rx] Past Medical History - Past Health History Medical/Surgical History: Denies Medical/Surgical History HEENT History: Reports: Other (See Below) Other HEENT History: wears glasses, has top and bottom denture Gastrointestinal History: Reports: Colon Polyp, Gastritis, GERD Genitourinary History: Reports: None Musculoskeletal History: Reports: Arthritis Neurological History: Reports: Migraines Psychiatric History: Reports: ADD, Anxiety, Bipolar, Depression, Other (See Below) Endocrine/Metabolic History: Reports: Hypothyroidism, Obesity/BMI 30+ Hematologic History: Reports: Anemia - Past Surgical History GI Surgical History: Reports: Colonoscopy, EGD Female Surgical History: Reports: Tubal Ligation Social & Family History - Family History Family Medical History: Noncontributory - Caffeine Use Caffeine Use: Reports: Coffee ED ROS GENERAL - Review of Systems Review Of Systems: See Below ED EXAM, GENERAL - Physical Exam Exam: See Below Course - Vital Signs Last Recorded V/S: Last Vital Signs Temp 99.9 F 05/31/18 20:41 Pulse 89 05/31/18 20:41 Resp 14 05/31/18 20:41 BP 111/48 L 05/31/18 20:41 Pulse Ox 96 05/31/18 20:41 - Orders/Labs/Meds Orders: Active Orders 24 hr Category Date Time Status EKG Documentation Completion [RC] STAT Care 05/31/18 20:42 Active Labs: Laboratory Tests 01/26/19 01/26/19 01/26/19 Range/Units 21:00 21:13 21:13 WBC 8.41 (4.0-11.0) K/uL RBC 4.43 (4.30-5.90) M/uL Hgb 12.0 (12.0-16.0) g/dL Hct 36.8 (36.0-46.0) % MCV 83.1 (80.0-98.0) fL MCH 27.1 (27.0-32.0) pg MCHC 32.6 (31.0-37.0) g/dL RDW Std Deviation 46.3 (28.0-62.0) fl RDW Coeff of Mehrdad 15 (11.0-15.0) % Plt Count 173 (150-400) K/uL MPV 9.20 (7.40-12.00) fL Neut % (Auto) 96.3 H (48.0-80.0) % Lymph % (Auto) 3.0 L (16.0-40.0) % Burnett % (Auto) 0.4 (0.0-15.0) % Eos % (Auto) 0.2 (0.0-7.0) % Baso % (Auto) 0.1 (0.0-1.5) % Neut # (Auto) 8.1 H (1.4-5.7) K/uL Lymph # (Auto) 0.3 L (0.6-2.4) K/uL Burnett # (Auto) 0.0 (0.0-0.8) K/uL Eos # (Auto) 0.0 (0.0-0.7) K/uL Baso # (Auto) 0.0 (0.0-0.1) K/uL Nucleated RBC % 0.0 /100WBC Nucleated RBCs # 0 K/uL Sodium 141 (136-145) mmol/L Potassium 3.3 L (3.5-5.1) mmol/L Chloride 109 H (98-107) mmol/L Carbon Dioxide 19.2 L (21.0-32.0) mmol/L BUN 18 (7.0-18.0) mg/dL Creatinine 1.2 H (0.6-1.0) mg/dL Est Cr Clr Drug Dosing TNP Estimated GFR (MDRD) 47.0 ml/min Glucose 96 (74-106) mg/dL Calcium 9.3 (8.5-10.1) mg/dL Total Bilirubin 0.3 (0.2-1.0) mg/dL AST 21 (15-37) IU/L ALT 27 (14-63) IU/L Alkaline Phosphatase 111 (46-116) U/L Troponin I < 0.050 (0.000-0.056) ng/mL Total Protein 7.5 (6.4-8.2) g/dL Albumin 3.4 (3.4-5.0) g/dL Globulin 4.1 H (2.6-4.0) g/dL Albumin/Globulin Ratio 0.8 L (0.9-1.6) Lipase 76 (73-393) U/L Urine Color YELLOW Urine Appearance CLEAR Urine pH 6.0 (5.0-8.0) Ur Specific [place] 1.015 (1.001-1.035) Urine Protein NEGATIVE (NEGATIVE) mg/dL Urine Glucose (UA) NEGATIVE (NEGATIVE) mg/dL Urine Ketones TRACE H (NEGATIVE) mg/dL Urine Occult Blood NEGATIVE (NEGATIVE) Urine Nitrite NEGATIVE (NEGATIVE) Urine Bilirubin NEGATIVE (NEGATIVE) Urine Urobilinogen 0.2 (<2.0) EU/dL Ur Leukocyte Esterase NEGATIVE (NEGATIVE) Meds: Medications Discontinued Medications Generic Name Dose Route Start Last Admin Trade Name Angelq PRN Reason Stop Dose Admin Sodium Chloride 1,000 mls @ 999 mls/hr 05/31/18 20:42 05/31/18 20:51 Normal Saline IV 05/31/18 21:42 999 mls/hr STAT ONE Administration Departure - Departure Time of Disposition: 22:01 Disposition: DC/Tfer to Hospice - Home 50 Condition: Good Clinical Impression: Pain - Discharge Information Forms: ED Department Discharge Additional Instructions: The following information is given to patients seen in the emergency department who are being discharged to home. This information is to outline your options for follow-up care. We provide all patients seen in our emergency department with a follow-up referral. The need for follow-up, as well as the timing and circumstances, are variable depending upon the specifics of your emergency department visit. If you don't have a primary care physician on staff, we will provide you with a referral. We always advise you to contact your personal physician following an emergency department visit to inform them of the circumstance of the visit and for follow-up with them and/or the need for any referrals to a consulting specialist. The emergency department will also refer you to a specialist when appropriate. This referral assures that you have the opportunity for follow-up care with a specialist. All of these measure are taken in an effort to provide you with optimal care, which includes your follow-up. Under all circumstances we always encourage you to contact your private physician who remains a resource for coordinating your care. When calling for follow-up care, please make the office aware that this follow-up is from your recent emergency room visit. If for any reason you are refused follow-up, please contact the [facility] emergency department at and asked to speak to the emergency department charge nurse. - My Orders Last 24 Hours: My Active Orders 05/31/18 20:42 EKG Documentation Completion [RC] STAT - Assessment/Plan Last 24 Hours: My Active Orders 05/31/18 20:42 EKG Documentation Completion [RC] STAT
[2018-05-31 21:38] LABS: CHLORIDE,CL 109 mmol/L (98-107); SODIUM,NA 141 mmol/L (136-145)
--- NOTE | 2018-05-31 21:39 | CR ---
INDICATION: Chest pain TECHNIQUE: Chest 1 view. COMPARISON: None FINDINGS: Cardiovascular and mediastinum: Heart size and vasculature are normal in caliber and appearance. Mediastinum is within normal limits. Lungs and pleural space: Lungs are clear. No sign of infiltrate or mass. No sign of pleural effusion. No pneumothorax. Bones and soft tissues: No significant findings. IMPRESSION: Unremarkable chest. Dictated by Tyler Shaw MD @ May 31 2018 9:37PM Signed by Dr. Tyler Shaw @ May 31 2018 9:38PM
== END 2018-05-31 22:55 | disposition home or self-care (01) ==
LOC: MW.ED 20:39
DX: R52 Pain, unspecified (principal); Z79.899 Other long term (current) drug therapy
CPT/HCPCS: 36415; 71045; 80053; 81003; 83690; 84484; 85025; 93005; 96360; 96361; 99284; J7040

== ENCOUNTER 2018-10-02 22:48 | Emergency (ER) | payer MEDICAID, OTHER ==
[2018-10-02] MEDS ORDERED: Sodium Chloride 0.9% 10 ML Syringe FLUSH PRN (23:00)
[2018-10-02] MEDS ORDERED: Sodium Chloride 0.9% 2.5 ML Syringe FLUSH PRN (23:00)
--- NOTE | 2018-10-02 23:03 | EDM.PDOC ---
ED HPI GENERAL MEDICAL PROBLEM - General Chief Complaint: Chest Pain Stated Complaint: CHEST PAIN Time Seen by Provider: 10/02/18 22:56 - History of Present Illness INITIAL COMMENTS - FREE TEXT/NARRATIVE: HISTORY AND PHYSICAL: History of present illness: Patient 53-year-old white female presents with concern of chest pain she's had this since about 3 PM this afternoon without associated shortness breath palpitations nausea vomiting or diaphoresis she does have history of anxiety and feels this may indeed be an anxiety attack. Patient has no known history of coronary artery disease Review of systems: As per history of present illness and below otherwise all systems reviewed and negative. Past medical history: As per history of present illness and as reviewed below otherwise noncontributory. Surgical history: As per history of present illness and as reviewed below otherwise noncontributory. Social history: No reported history of drug or alcohol abuse. Family history: As per history of present illness and as reviewed below otherwise noncontributory. Physical exam: HEENT: Atraumatic, normocephalic, pupils reactive, negative for conjunctival pallor or scleral icterus, mucous membranes moist, throat clear, neck supple, nontender, trachea midline. Lungs: Clear to auscultation, breath sounds equal bilaterally, chest nontender. Heart: S1S2, regular, negative for clicks, rubs, or JVD. Abdomen: Soft, nondistended, nontender. Negative for masses or hepatosplenomegaly. Negative for costovertebral tenderness. Pelvis: Stable nontender. Genitourinary: Deferred. Rectal: Deferred. Extremities: Atraumatic, negative for cords or calf pain. Neurovascular unremarkable. Neuro: Awake, alert, oriented. Cranial nerves II through XII unremarkable. Cerebellum unremarkable. Motor and sensory unremarkable throughout. Exam nonfocal. Diagnostics: CBC CMP troponin PT/INR chest x-ray EKG Therapeutics: IV O2 monitor Impression: 1 atypical chest pain #2 history of anxiety Definitive disposition and diagnosis as appropriate pending reevaluation and review of above. middle chest Pain Score (Numeric/FACES): 3 - Related Data Allergies Allergy/AdvReac Type Severity Reaction Status Date / Time No Known Allergies Allergy Verified 10/02/18 23:05 Home Meds: Home Meds FLUoxetine [PROzac] 0 mg PO DAILY 05/30/16 [History] Levothyroxine Sodium [Synthroid] 0 mcg PO DAILY 11/08/16 [History] Methylphenidate HCl [Methylphenidate ER] 20 mg PO ASDIRECTED 11/08/16 [History] Phentermine HCl 37.5 mg PO ASDIRECTED 11/08/16 [History] buPROPion HCl [Wellbutrin Xl] 0 mg PO DAILY 11/08/16 [History] cloNIDine HCl [Catapres] 0.2 mg PO DAILY 11/08/16 [History] Pantoprazole [ProTONIX] 40 mg PO ACBREAKFAST #30 tab.cr 11/21/16 [Rx] Past Medical History - Past Health History Medical/Surgical History: Denies Medical/Surgical History HEENT History: Reports: Other (See Below) Other HEENT History: wears glasses, has top and bottom denture Gastrointestinal History: Reports: Colon Polyp, Gastritis, GERD Genitourinary History: Reports: None 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: Musculoskeletal History: Reports: Arthritis Neurological History: Reports: Migraines Psychiatric History: Reports: ADD, Anxiety, Bipolar, Depression, Other (See Below) Endocrine/Metabolic History: Reports: Hypothyroidism, Obesity/BMI 30+ Hematologic History: Reports: Anemia Immunologic History: Reports: Other (See Below) Other Immunologic History: lupus - Past Surgical History GI Surgical History: Reports: Colonoscopy, EGD Female Surgical History: Reports: Tubal Ligation Social & Family History - Family History Family Medical History: Noncontributory - Caffeine Use Caffeine Use: Reports: Coffee ED ROS GENERAL - Review of Systems Review Of Systems: ROS reveals no pertinent complaints other than HPI. ED EXAM, GENERAL - Physical Exam Exam: See Below (Dictation) Course - Vital Signs Last Recorded V/S: Last Vital Signs Temp 36.1 C 10/02/18 22:48 Pulse 80 10/02/18 23:41 Resp 14 10/02/18 23:41 BP 103/43 L 10/02/18 23:41 Pulse Ox 97 10/02/18 23:41 - Orders/Labs/Meds Orders: Active Orders 24 hr Category Date Time Status Cardiac Monitoring [RC] . DIRECTED Care 10/02/18 23:16 Active EKG Documentation Completion [RC] STAT Care 10/02/18 23:00 Active Saline Lock Insert [OM.PC] Stat Oth 10/02/18 23:00 Ordered Labs: Laboratory Tests 10/02/18 10/02/18 10/02/18 Range/Units 22:54 22:54 22:54 WBC 6.50 (4.0-11.0) K/uL RBC 4.46 (4.30-5.90) M/uL Hgb 11.5 L (12.0-16.0) g/dL Hct 36.3 (36.0-46.0) % MCV 81.4 (80.0-98.0) fL MCH 25.8 L (27.0-32.0) pg MCHC 31.7 (31.0-37.0) g/dL RDW Std Deviation 46.1 (28.0-62.0) fl RDW Coeff of Mehrdad 16 H (11.0-15.0) % Plt Count 268 (150-400) K/uL MPV 9.40 (7.40-12.00) fL Neut % (Auto) 57.2 (48.0-80.0) % Lymph % (Auto) 30.5 (16.0-40.0) % [place] % (Auto) 10.0 (0.0-15.0) % Eos % (Auto) 2.0 (0.0-7.0) % Baso % (Auto) 0.3 (0.0-1.5) % Neut # (Auto) 3.7 (1.4-5.7) K/uL Lymph # (Auto) 2.0 (0.6-2.4) K/uL [place] # (Auto) 0.7 (0.0-0.8) K/uL Eos # (Auto) 0.1 (0.0-0.7) K/uL Baso # (Auto) 0.0 (0.0-0.1) K/uL Nucleated RBC % 0.0 /100WBC Nucleated RBCs # 0 K/uL INR 0.99 Sodium 140 (136-145) mmol/L Potassium 3.7 (3.5-5.1) mmol/L Chloride 109 H (98-107) mmol/L Carbon Dioxide 18.2 L (21.0-32.0) mmol/L BUN 14 (7.0-18.0) mg/dL Creatinine 1.4 H (0.6-1.0) mg/dL Est Cr Clr Drug Dosing 43.50 mL/min Estimated GFR (MDRD) 39.3 ml/min Glucose 113 H (74-106) mg/dL Calcium 8.6 (8.5-10.1) mg/dL Total Bilirubin 0.3 (0.2-1.0) mg/dL AST 20 (15-37) IU/L ALT 21 (14-63) IU/L Alkaline Phosphatase 105 (46-116) U/L Troponin I < 0.050 (0.000-0.056) ng/mL Total Protein 7.7 (6.4-8.2) g/dL Albumin 3.5 (3.4-5.0) g/dL Globulin 4.2 H (2.6-4.0) g/dL Albumin/Globulin Ratio 0.8 L (0.9-1.6) Meds: Medications Discontinued Medications Generic Name Dose Route Start Last Admin Trade Name Freq PRN Reason Stop Dose Admin Sodium Chloride 10 ml 10/02/18 23:00 10/02/18 23:29 Saline Flush FLUSH 10 ml ASDIRECTED PRN Administration Keep Vein Open Sodium Chloride 2.5 ml 10/02/18 23:00 10/02/18 23:29 Saline Flush FLUSH 2.5 ml ASDIRECTED PRN Administration Keep Vein Open Departure - Departure Time of Disposition: 04:37 Disposition: Home, Self-Care 01 Clinical Impression: Atypical chest pain - Discharge Information Instructions: Nonspecific Chest Pain, [id number] Referrals: PCP,None [Primary Care Provider] - Forms: ED Department Discharge - My Orders Last 24 Hours: My Active Orders 10/02/18 23:00 EKG Documentation Completion [RC] STAT Saline Lock Insert [OM.PC] Stat 10/02/18 23:16 Cardiac Monitoring [RC] . DIRECTED - Assessment/Plan Last 24 Hours: My Active Orders 10/02/18 23:00 EKG Documentation Completion [RC] STAT Saline Lock Insert [OM.PC] Stat 10/02/18 23:16 Cardiac Monitoring [RC] . DIRECTED
[2018-10-02 23:33] LABS: CHLORIDE,CL 109 mmol/L (98-107); SODIUM,NA 140 mmol/L (136-145)
--- NOTE | 2018-10-02 23:37 | CR ---
INDICATION: Chest pain TECHNIQUE: Chest radiograph 1 view COMPARISON: 05/31/18 FINDINGS: Moderate degradation of image quality noted due to body habitus. Mediastinum: The mediastinum is normal in appearance. The heart silhouette is normal in size and morphology. Lung: Both lungs are unremarkable in appearance. No sign of pleural effusion seen. No pneumothorax is identified. Musculoskeletal: Unremarkable for age. IMPRESSION: 1. No acute cardiopulmonary disease is seen. Dictated by: Carmine Tolentino MD @ 10/02/2018 23:34:23 (Electronically Signed)
[2018-10-02 23:41] VITALS: BP 103/43
== END 2018-10-03 00:15 | disposition home or self-care (01) ==
LOC: MW.ED 22:48
DX: R07.89 Other chest pain (principal); F41.9 Anxiety disorder, unspecified; K21.9 Gastro-esophageal reflux disease without esophagitis; F31.9 Bipolar disorder, unspecified; E03.9 Hypothyroidism, unspecified; Z79.899 Other long term (current) drug therapy
CPT/HCPCS: 36415; 71045; 71045-26; 80053; 84484; 85025; 85610; 93005; 99283; 99285-25

== ENCOUNTER 2019-05-15 10:15 | Day surgery (SDC) | payer MEDICAID, OTHER ==
[~2019-05-15 10:15] MED LIST changes: -Acetaminophen/HYDROcodone 325-5 MG Tab PO PRN; +Famotidine 20 MG/2 ML SDV IVPUSH SCH; -Lactated Ringers 1,000 ML IV SCH; -Lidocaine 1% 50 ML MDV ONE; +Ropivacaine 49.25 ML, Ketorolac 30 MG, EPINEPHrine 0.5 MG, cloNIDine 80 MCG in Sodium C... INJECT SCH; +Scopolamine 1.5 MG Transdermal Patch TRDERM SCH
[2019-05-15] MEDS ORDERED: fentaNYL 100 MCG/2 ML SDV ONE (11:04)
[2019-05-15] MEDS ORDERED: Propofol 200 MG/20 ML SDV ONE (11:04)
[2019-05-15] MEDS ORDERED: Lidocaine 2% 5 ML SDV ONE (11:04)
[2019-05-15] MEDS ORDERED: Midazolam 1 MG/ML 2 ML SDV ONE (11:04)
--- NOTE | 2019-05-15 11:28 | PCM.PREANE ---
Preanesthetic Assessment - Anesthesia/Transfusion/Family Hx Anesthesia History: Prior Anesthesia Without Reaction Family History of Anesthesia Reaction: No Transfusion History: No Prior Transfusion(s) Intubation History: Unknown - Review of Systems General: No Symptoms Pulmonary: No Symptoms Cardiovascular: No Symptoms Gastrointestinal: No Symptoms Neurological: Numbness, Paresthesia - Physical Assessment Weight: 107.501 kg ASA Class: 3 Mental Status: Alert & Oriented x3 Airway Class: Mallampati = 3 Dentition: Reports: Normal Dentition ROM/Head Extension: Full Lungs: Clear to Auscultation, Normal Respiratory Effort Cardiovascular: Regular Rate, Regular Rhythm - Allergies Allergies/Adverse Reactions: Allergies Allergy/AdvReac Type Severity Reaction Status Date / Time No Known Allergies Allergy Verified 05/12/19 12:21 - Blood Blood Available: No - Anesthesia Plan Pre-Op Medication Ordered: None - Acknowledgements Anesthesia Type Planned: Spinal Pt an Appropriate Candidate for the Planned Anesthesia: Yes Alternatives and Risks of Anesthesia Discussed w Pt/Guardian: Yes Pt/Guardian Understands and Agrees with Anesthesia Plan: Yes Additional Comments: PMH: bmi=40, thick neck, denies snoring of LIANNE, but never tested for LIANNE, bipolar, adhd, 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 for which she is using neurontin PLAN: spinal, watch for signs and/or complications of LIANNE PreAnesthesia Questionnaire - Past Health History Medical/Surgical History: Denies Medical/Surgical History HEENT History: Reports: Other (See Below) Other HEENT History: wears glasses, has upper and lower removable partial dentures Gastrointestinal History: Reports: GERD Genitourinary History: Reports: None 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: Musculoskeletal History: Reports: Arthritis, Back Pain, Chronic, RA Other Musculoskeletal History: lumbar spinal stenosis Neurological History: Reports: Migraines, Other (See Below) Other Neuro History: degenerative disc disease, hx of motion sickness Psychiatric History: Reports: ADD, Anxiety, Bipolar, Depression, Suicidal Ideation Other Psychiatric History: states she frequently thinks of suicide but does counseling and is able to keep it under control Endocrine/Metabolic History: Reports: Hypothyroidism, Obesity/BMI 30+ Hematologic History: Reports: Anemia Immunologic History: Reports: Other (See Below) Other Immunologic History: lupus - Past Surgical History Head Surgeries/Procedures: Reports: None GI Surgical History: Reports: Colonoscopy, EGD Female Surgical History: Reports: Tubal Ligation Neurological Surgical History: Reports: Laminectomy, Lumbar Spine, Spinal Fusion Musculoskeletal Surgical History: Reports: Arthroscopic Knee - SUBSTANCE USE Smoking Status *Q: Never Smoker Recreational Drug Use History: No - HOME MEDS Home Medications: Home Meds FLUoxetine [PROzac] 80 mg PO QAM 05/30/16 [History] Levothyroxine Sodium [Synthroid] 150 mcg PO QAM 11/08/16 [History] buPROPion HCl [Wellbutrin Xl] 300 mg PO QAM 11/08/16 [History] cloNIDine HCl [Catapres] 0.2 mg PO BEDTIME PRN 11/08/16 [History] Pantoprazole [ProTONIX] 40 mg PO ACBREAKFAST #30 tab.cr 11/21/16 [Rx] Methylphenidate HCl [Ritalin] 10 mg PO QPM 05/12/19 [History] Methylphenidate HCl [Ritalin] 30 mg PO QAM 05/12/19 [History] Naloxone HCl [Narcan] 1 spray VENU ASDIRECTED PRN 05/12/19 [History] Oxybutynin Chloride [Ditropan Xl] 10 mg PO DAILY 05/12/19 [History] Pregabalin [Lyrica] 100 mg PO BID 05/12/19 [History] SUMAtriptan Succinate [Imitrex] 100 mg PO ASDIRECTED PRN 05/12/19 [History] Topiramate 100 mg PO BID 05/12/19 [History] buPROPion HCl [Bupropion Xl] 150 mg PO QPM 05/12/19 [History] oxyCODONE HCl/Acetaminophen [Endocet 5-325 Tablet] 1 - 2 tab PO Q6H PRN [History] - CURRENT (IN HOUSE) MEDS Current Meds: Current Medications Famotidine (Pepcid) 40 mg IVPUSH ONARRIVE ANGEL Cefazolin Sodium/Dextrose 2 gm (/ Premix) 50 mls @ 100 mls/hr IV ONCALL ANGEL Ropivacaine 49.25 ml/Ketorolac Tromethamine 30 mg/Epinephrine HCl 0.5 mg/ Clonidine HCl 80 mcg/ Sodium Chloride 75 mls @ 50 mls/sec INJECT ASDIRECTED ANGEL Lactated Ringer's (Ringers, Lactated) 1,000 mls @ 100 mls/hr IV ASDIRECTED ANGEL Scopolamine (Transderm-Scop) 1.5 mg TRDERM ONARRIVE ANGEL Discontinued Medications Fentanyl (Sublimaze) Confirm Administered Dose 100 mcg .ROUTE .STK-MED ONE Stop: 05/15/19 11:05 Lidocaine (Xylocaine-Mpf 2%) Confirm Administered Dose 5 ml .ROUTE .STK-MED ONE Stop: 05/15/19 11:05 Midazolam HCl (Versed 1 Mg/Ml) Confirm Administered Dose 2 mg .ROUTE .STK-MED ONE Stop: 05/15/19 11:05 Propofol (Diprivan 20 Ml) Confirm Administered Dose 400 mg .ROUTE .STK-MED ONE Stop: 05/15/19 11:05 Tranexamic Acid (Cyklokapron) 2,000 mg TOP ONETIME ONE Stop: 05/15/19 06:01 Tranexamic Acid (Cyklokapron) Confirm Administered Dose 1,000 mg .ROUTE .STK- MED ONE Stop: 05/15/19 09:22
[2019-05-15] MEDS: Lactated Ringers 1,000 ML IV SCH ×2 (11:34→15:42)
[2019-05-15] MEDS ORDERED: ceFAZolin/Dextrose,Iso-Osmotic 2 GM/50 ML Duplex Bag IV ONE (11:42)
[2019-05-15] MEDS ORDERED: Ondansetron 4 MG/2 ML SDV ONE (13:06)
[2019-05-15] MEDS ORDERED: Ondansetron 4 MG/2 ML SDV IVPUSH PRN (14:05)
[2019-05-15] MEDS ORDERED: Bisacodyl 10 MG Supp RECTAL PRN (14:05)
[2019-05-15] MEDS ORDERED: Docusate Sodium 100 MG Cap PO PRN (14:05)
[2019-05-15] MEDS ORDERED: traMADol 50 MG Tab PO PRN (14:05)
[2019-05-15] MEDS ORDERED: Acetaminophen/oxyCODONE 325-5 MG Tab PO PRN (14:05)
[2019-05-15] MEDS ORDERED: Sodium Chloride 0.9% 10 ML Syringe FLUSH PRN (14:05)
[2019-05-15] MEDS ORDERED: Sodium Chloride 0.9% 2.5 ML Syringe FLUSH PRN (14:05)
[2019-05-15] MEDS ORDERED: diphenhydrAMINE 25 MG Cap PO PRN (14:05)
[2019-05-15] MEDS ORDERED: Aluminum Hydroxide/Magnesium Hydroxide/Simethicone Susp 30 ML Cup PO PRN (14:05)
--- NOTE | 2019-05-15 14:41 | PCM.OPNOTE ---
- General Post-Op/Procedure Note Date of Surgery/Procedure: 05/15/19 Operative Procedure(s): left tka Pre Op Diagnosis: left knee primary oa Post-Op Diagnosis: Same Anesthesia Technique: Epidural, General ET Tube Primary Surgeon: Ben Bateman Rn Lab: [facility] EBL in mLs: 50 Complications: None Condition: Good Free Text/Narrative:: Intake & Output 05/14/19 05/15/19 05/15/19 22:59 06:59 14:59 Intake Total 1100 Output Total 925 Balance 175
--- NOTE | 2019-05-15 14:54 | PCM.POSTAN ---
POST ANESTHESIA ASSESSMENT - MENTAL STATUS Mental Status: Alert, Oriented - VITAL SIGNS Vital Signs: Last Vital Signs Temp 97.3 F 05/15/19 13:53 Pulse 67 05/15/19 14:18 Resp 18 05/15/19 14:18 BP 136/69 05/15/19 14:18 Pulse Ox 100 05/15/19 14:18 - RESPIRATORY Respiratory Status: Respiratory Rate WNL, Airway Patent, O2 Saturation Stable - CARDIOVASCULAR CV Status: Pulse Rate WNL, Blood Pressure Stable - GASTROINTESTINAL GI Status: No Symptoms - POST OP HYDRATION Hydration Status: Adequate & Stable
[2019-05-15] MEDS ORDERED: cloNIDine 0.1 MG Tab PO PRN (15:56)
--- NOTE | 2019-05-15 16:11 | PCM.CONS ---
H&P History of Present Illness - General Date of Service: 05/15/19 Admit Problem/Dx: s/p LEFT TKA Source of Information: Patient History Limitations: Reports: No Limitations - History of Present Illness Initial Comments - Free Text/Narative: This 54 year old female with pmh of anxiety,depression, ADD,bipolar disorder followed by Dr Kaur as well as overactive bladder and Sjogren's presented today for L total knee. Hospitalist service consulted for medical management due to extensive psychiatric medications. Tiffany recently arrived to unit from PACU. She is alert and oriented, eating a sandwich. Reports no pain currently. She reports regarding depression/anxiety she feels she is controlled on current regimen and has no concerns. She denies chest pain or SOB. No fevers or chills recently. She reports being very eager to get back to normal activity after knee surgery. Denies HTN, CAD, CVA DVT or DM. - Related Data Allergies/Adverse Reactions: Allergies Allergy/AdvReac Type Severity Reaction Status Date / Time No Known Allergies Allergy Verified 05/15/19 15:33 Home Medications: Home Meds FLUoxetine [PROzac] 80 mg PO QAM 05/30/16 [History] Levothyroxine Sodium [Synthroid] 150 mcg PO QAM 11/08/16 [History] buPROPion HCl [Wellbutrin Xl] 300 mg PO QAM 11/08/16 [History] cloNIDine HCl [Catapres] 0.2 mg PO BEDTIME PRN 11/08/16 [History] Pantoprazole [ProTONIX] 40 mg PO ACBREAKFAST #30 tab.cr 11/21/16 [Rx] Methylphenidate HCl [Ritalin] 10 mg PO QPM 05/12/19 [History] Methylphenidate HCl [Ritalin] 30 mg PO QAM 05/12/19 [History] Naloxone HCl [Narcan] 1 spray VENU ASDIRECTED PRN 05/12/19 [History] Oxybutynin Chloride [Ditropan Xl] 10 mg PO DAILY 05/12/19 [History] Pregabalin [Lyrica] 100 mg PO BID 05/12/19 [History] SUMAtriptan Succinate [Imitrex] 100 mg PO ASDIRECTED PRN 05/12/19 [History] Topiramate 100 mg PO BID 05/12/19 [History] buPROPion HCl [Bupropion Xl] 150 mg PO QPM 05/12/19 [History] oxyCODONE HCl/Acetaminophen [Endocet 5-325 Tablet] 1 tab PO Q4H PRN 05/12/19 [ History] Past Medical History - Past Health History Medical/Surgical History: Denies Medical/Surgical History HEENT History: Reports: Other (See Below) Other HEENT History: wears glasses, has upper and lower removable partial dentures Cardiovascular History: Reports: None. Denies: Afib, CAD, [place] Respiratory History: Reports: None. 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 Denies: CVA Other Neuro History: degenerative disc disease, hx of motion sickness Psychiatric History: Reports: ADD, Anxiety, Bipolar, Depression, Suicidal Ideation Other Psychiatric History: states she frequently thinks of suicide but does counseling and is able to keep it under control Endocrine/Metabolic History: Reports: Hypothyroidism, Obesity/BMI 30+ Hematologic History: Reports: Anemia Immunologic History: Reports: Other (See Below) Other Immunologic History: lupus - Past Surgical History Head Surgeries/Procedures: Reports: None GI Surgical History: Reports: Colonoscopy, EGD Female Surgical History: Reports: Tubal Ligation Neurological Surgical History: Reports: Laminectomy, Lumbar Spine, Spinal Fusion Musculoskeletal Surgical History: Reports: Arthroscopic Knee Social & Family History - Family History Family Medical History: Noncontributory - Tobacco Use Smoking Status *Q: Never Smoker - Caffeine Use Caffeine Use: Reports: Coffee - Alcohol Use Alcohol Use History: No - Recreational Drug Use Recreational Drug Use: No Drug Use in Last 12 Months: No H&P Review of Systems - Review of Systems: Review Of Systems: See Below General: Reports: No Symptoms. Denies: Fever, Chills, Malaise HEENT: Reports: No Symptoms. Denies: Headaches, Sinus Congestion, Sore Throat Pulmonary: Reports: No Symptoms. Denies: Shortness of Breath Cardiovascular: Reports: No Symptoms. Denies: Chest Pain Gastrointestinal: Reports: No Symptoms. Denies: Abdominal Pain, Black Stool, Bloody Stool, Nausea, Vomiting Musculoskeletal: Reports: No Symptoms. Denies: Joint Pain Skin: Reports: No Symptoms Psychiatric: Reports: No Symptoms. Denies: Suicidal Ideation Neurological: Reports: No Symptoms Hematologic/Lymphatic: Reports: No Symptoms Immunologic: Reports: No Symptoms Exam - Exam Exam: See Below - Vital Signs Vital Signs: Last Vital Signs Temp 97.5 F 05/15/19 14:30 Pulse 62 05/15/19 14:30 Resp 16 05/15/19 14:30 BP 129/60 05/15/19 14:30 Pulse Ox 99 05/15/19 14:30 Weight: 107.501 kg - Exam General: Alert, Oriented, Cooperative HEENT: Conjunctiva Clear, Mucosa Moist & [place], Pupils Reactive Lungs: Clear to Auscultation, Normal Respiratory Effort Cardiovascular: Regular Rate, Regular Rhythm GI/Abdominal Exam: Normal Bowel Sounds, Soft, Non-Tender Extremities: Normal Inspection, Normal Range of Motion, Non-Tender Neuro Extensive - Mental Status: Alert, Oriented x3, Normal Mood/Affect Neuro Extensive - Motor, Sensory, Reflexes: CN II-XII Intact Psychiatric: Alert, Normal Affect, Normal Mood. No: Suicidal Ideation - Patient Data Lab Results Last 24 hrs: Laboratory Results - last 24 hr 05/15/19 Range/Units 10:45 Blood Type O POSITIVE Antibody Screen NEGATIVE Sepsis Event Note - Focused Exam Vital Signs: Vital Signs Temp Pulse Resp BP Pulse Ox 05/15/19 14:30 97.5 F 62 16 129/60 99 05/15/19 14:18 67 18 136/69 100 05/15/19 14:13 63 18 140/73 99 05/15/19 14:08 59 L 14 136/63 98 05/15/19 14:03 66 16 142/63 H 99 05/15/19 13:58 61 16 118/46 L 98 05/15/19 13:53 97.3 F 66 15 128/54 L 100 05/15/19 11:39 98.2 F 69 16 132/66 98 Date Exam was Performed: 05/15/19 Time Exam was Performed: 16:05 Consult PN Assessment/Plan POD#: 0 Procedures: Procedures ANTINUCLEAR ANTIBODIES (06/09/18) ASSAY OF AMYLASE (11/12/16) ASSAY OF CK (CPK) (11/13/16) ASSAY OF FERRITIN (11/13/16) ASSAY OF FREE THYROXINE (09/25/18) ASSAY OF LIPASE (05/31/18) ASSAY OF MAGNESIUM (11/13/16) ASSAY OF TROPONIN QUANT (10/02/18) ASSAY THYROID STIM HORMONE (01/01/19) C-REACTIVE PROTEIN (06/09/18) CHYLMD TRACH DNA AMP PROBE (01/25/17) COMPLETE CBC W/AUTO DIFF WBC (04/27/19) COMPREHEN METABOLIC PANEL (01/01/19) CT ABD & PELVIS W/O CONTRAST (01/17/18) CULTURE OTHR SPECIMN AEROBIC (04/27/19) DIAGNOSTIC COLONOSCOPY (11/21/16) ECHO EXAM OF ABDOMEN (02/04/18) EGD BIOPSY SINGLE/MULTIPLE (11/21/16) ELECTROCARDIOGRAM TRACING (10/02/18) EMERGENCY DEPT VISIT (10/02/18) EMERGENCY DEPT VISIT (05/31/18) EMERGENCY DEPT VISIT (11/13/17) EMERGENCY DEPT VISIT (06/21/17) EMERGENCY DEPT VISIT (09/07/15) GLYCOSYLATED HEMOGLOBIN TEST (01/25/17) HEPATOBIL SYST IMAGE W/DRUG (02/04/18) HIV-1 AG W/HIV-1 & HIV-2 AB (01/25/17) HYDRATE IV INFUSION ADD-ON (05/31/18) HYDRATION IV INFUSION INIT (05/31/18) IRON BINDING TEST (09/25/18) KNEE ARTHROSCOPY/SURGERY (12/03/16) LYME DISEASE ANTIBODY (11/13/16) MEDICAL NUTRITION INDIV IN (03/20/17) METABOLIC PANEL TOTAL CA (04/27/19) MRI JOINT LWR EXTR W/O&W/DYE (10/12/16) MRI LUMBAR SPINE W/O DYE (06/25/18) N.GONORRHOEAE DNA AMP PROB (01/25/17) PROTHROMBIN TIME (04/27/19) PT EVAL LOW COMPLEX 20 MIN (01/17/17) RBC SED RATE AUTOMATED (06/09/18) RHEUMATOID FACTOR QUANT (06/09/18) RHEUMATOID FACTOR TEST QUAL (06/09/18) ROUTINE VENIPUNCTURE (04/27/19) SPECIAL STAINS GROUP 1 (11/21/16) THER/PROPH/DIAG INJ IV PUSH (11/12/16) THERAPEUTIC EXERCISES (01/17/17) THROMBOPLASTIN TIME PARTIAL (09/25/18) TISSUE EXAM BY PATHOLOGIST (11/21/16) URINALYSIS AUTO W/O SCOPE (04/27/19) URINALYSIS AUTO W/SCOPE (11/12/16) URINE TEST (12/03/16) VITAMIN B-12 (11/13/16) X-RAY EXAM CHEST 1 VIEW (10/02/18) X-RAY EXAM CHEST 2 VIEWS (04/27/19) X-RAY EXAM KNEE 4 OR MORE (10/30/16) X-RAY EXAM L-S SPINE 2/3 VWS (02/17/19) X-RAY EXAM NECK SPINE 2-3 VW (03/06/19) X-RAY EXAM OF KNEE 1 OR 2 (04/03/19) X-RAY EXAM OF KNEE 3 (03/06/19) X-RAY EXAM OF KNEES (01/28/18) (1) Anxiety and depression SNOMED Code(s): 905316310 Code(s): F41.9 - ANXIETY DISORDER, UNSPECIFIED; F32.9 - MAJOR DEPRESSIVE DISORDER, SINGLE EPISODE, UNSPECIFIED Current Visit: Yes (2) ADD (attention deficit disorder) SNOMED Code(s): 10750506 Code(s): F98.8 - OTH BEHAV/EMOTN DISORD W ONSET USLY OCCUR IN CHLDHD AND ADOL Current Visit: Yes (3) Overactive bladder SNOMED Code(s): 751905010 Code(s): N32.81 - OVERACTIVE BLADDER Current Visit: Yes Problem List Initiated/Reviewed/Updated: Yes My Orders Last 24 Hours: My Active Orders 05/15/19 15:54 BASIC METABOLIC PANEL,BMP [CHEM] Routine CBC WITH AUTO DIFF [HEME] Routine MG [MAGNESIUM] [CHEM] Routine 05/15/19 15:56 cloNIDine HCl [Catapres] 0.2 mg PO BEDTIME PRN 05/15/19 18:00 Methylphenidate HCl [Ritalin] 10 mg PO QPM buPROPion [Wellbutrin XL] 150 mg PO QPM 05/15/19 21:00 Pregabalin 100 mg PO BID Topiramate [Topamax] 100 mg PO BID 05/16/19 07:00 Levothyroxine 150 mcg PO DAILY@0700 05/16/19 09:00 FLUoxetine [PROzac] 80 mg PO QAM Methylphenidate HCl [Ritalin] 30 mg PO QAM Oxybutynin Chloride [Ditropan Xl] 10 mg PO DAILY buPROPion 300 mg PO QAM Plan: This 54 year old female admitted for L TKA. Hospitalist service consulted for medical management 1. L TKA: Per Orthopedics 2. ADD/Depression/Anxiety: Continue Home medications currently. Monitor. DC Scopolamine patch. Nursing has removed. No suicidal ideation. Will obtained BMP, CBC Mg now to monitor. VTE Prophylaxis: Would recommend when deemed appropriate by Orthopedics.
--- NOTE | 2019-05-15 16:34 | OR ---
SURGEON: Ben Bateman DATE OF PROCEDURE: 05/15/2019 PREOPERATIVE DIAGNOSIS: Left knee primary osteoarthritis. POSTOPERATIVE DIAGNOSIS: Left knee primary osteoarthritis. PROCEDURE: Left knee total knee arthroplasty. PRIMARY SURGEON: Ben Bateman DO. ENVIRONMENTAL PROGRAM MANAGER: HERMAN Diaz. ROLE OF ENVIRONMENTAL PROGRAM MANAGER: Nurse practitioner, HERMAN Diaz, played an essential role in assisting in this case, helping to position the patient, retract structures as needed, as well as suturing and cutting sutures as indicated. Her presence improved patient's safety and decreased operative time. ANESTHESIA: Spinal plus endotracheal intubation. FLUID: Lactated Ringer's solution. ESTIMATED BLOOD LOSS: 50 mL. COMPLICATION: None. SPECIMEN: None. DISCHARGE DISPOSITION: Stable to PACU. INSTRUMENTATION: [employer] Attune size 7 cemented femur; size 6 tibia; size 7, 5 mm polyethylene tibial insert; and 38 mm polyethylene patella. HISTORY AND INDICATION FOR THE PROCEDURE: The patient was seen preoperatively in the clinic. She failed nonoperative treatment. Preoperative imaging including plain films and MRI confirmed the above-mentioned diagnosis. Risks and benefits of the procedure explained to the patient. Informed consent was obtained. DETAILS OF PROCEDURE: The patient was seen preoperatively by myself and the Anesthesia staff in the preoperative holding area where the operative site was marked. She was brought to the operative suite by the Anesthesia staff for spinal sedation plus general sedation was administered. All extremities found to be well padded. A sterile He catheter was inserted. A well-padded tourniquet was placed on the left thigh. The left lower extremity was then prepped and draped in a sterile manner. Time-out was called identifying the correct patient, the correct procedure, the correct site, and that antibiotics had been given within appropriate period of time. A midline incision was made from the tibial tubercle 3 fingerbreadths proximal to the patella and carried down to the subcutaneous fat. I then elevated the subcu over the fascia and then made my medial parapatellar arthrotomy. I then put the knee in extension and performed a full synovectomy. I then applied a towel clip to the superior side of the patella and flexed the knee with the patella everted. I then removed some fat from around the patella. We then made two perpendicular cuts with a saw blade and measured a 38. We then applied the drilling guide, drilled three lugs and then applied the patellar polyethylene trial. I then flexed the knee with Homans, which were used during the procedure to protect the medial and lateral collateral ligaments and then reamed the distal femur and placed the intramedullary guide at 5 degree valgus, 9 mm distal cut, pinned that in place, removed the intramedullary part of the guide, and then saw the distal femur. I then removed that guide and then used a posterior condylar guide, which measured a size 7. I pinned that in place and then placed a chamfer block and then again protected collateral ligaments with Homans and then did my anterior, posterior, and chamfer cuts. I then removed the block and used an osteotome to remove the remainder of the bone. I then removed some more of the medial and lateral meniscus as well as the anterior cruciate ligament and then anteriorized the femur and used Homans on the medial and lateral collateral ligaments. We then used an extramedullary tibial guide, 7 degree posterior slope, pinned the guide in place, and then made my proximal tibial cut. I then removed my guide and then measured and placed a 6 baseplate on it, this appeared to be the correct size. I then put this on in line with the tibial spine and put on, used my tower to ream and then tamp and then left that in place. I then placed my femoral trial on after rasping using the notch guide and then drilled my two lugs for the femur. I applied my size 7, 5 mm polyethylene trial. This provided good stability throughout range of motion. I then removed all of our components and used a lamina printing technician to examine the posterior capsule, which I did burn a little bit with Bovie electrocautery in some areas and then removed the remainder of the medial and lateral meniscus. We then copiously irrigated with saline and then cemented our components in place. Tourniquet time was 40 minutes. The tourniquet was let down during cementing, and after the cement had dried, I removed any extra cement, which was very little, and then removed the tibial trial and then placed a size 7, 5 mm polyethylene tibial insert. This provided excellent stability throughout range of motion. We then irrigated again with Betadine-infused irrigation and then closed the parapatellar arthrotomy with two #5 [id number] Ethibond sutures. My kindergarten assistant then closed with 0 Stratafix on the parapatellar arthrotomy and 0 Stratafix subcutaneously followed by skin george and dressed with Betadine-soaked Adaptic, fluffs, and an Alan wrap. The patient was then allowed to awaken from general anesthesia and taken to the PACU in stable condition. [id number] / MODL /[id number]
[2019-05-15 16:46] LABS: BLOOD UREA NITROGEN,BUN 14 mg/dL (7.0-18.0); CARBON DIOXIDE,CO2 24.3 mmol/L (21.0-32.0); CHLORIDE,CL 112 mmol/L (98-107); GLUCOSE RANDOM 185 mg/dL (74-106); POTASSIUM,K 3.8 mmol/L (3.5-5.1); SODIUM,NA 147 mmol/L (136-145)
[2019-05-15] MEDS: Morphine 2 MG/ML Syringe IVPUSH PRN ×2 (17:41→21:04)
[2019-05-15] MEDS ORDERED: buPROPion 150 MG Tab.ER PO SCH (18:00)
[2019-05-15] MEDS ORDERED: METHYLPHENIDATE HCL 10 MG PO SCH (18:00)
[2019-05-15] MEDS: Ketorolac 30 MG/ML SDV IVPUSH SCH ×2 (20:37→20:51)
[2019-05-15] MEDS: Pregabalin 50 MG Cap PO SCH (20:38)
[2019-05-15] MEDS: Topiramate 100 MG Tab PO SCH (20:39)
[2019-05-15] MEDS: ceFAZolin 2 GM in Premix Bag 1 BAG IV SCH (20:43)
[2019-05-16] MEDS: Ketorolac 30 MG/ML SDV IVPUSH SCH (01:00)
[2019-05-16] MEDS: Morphine 2 MG/ML Syringe IVPUSH PRN (01:01)
[2019-05-16] MEDS: Lactated Ringers 1,000 ML IV SCH (01:10)
[2019-05-16] MEDS: ceFAZolin 2 GM in Premix Bag 1 BAG IV SCH (04:15)
[2019-05-16 06:24] LABS: BLOOD UREA NITROGEN,BUN 19 mg/dL (7.0-18.0); CARBON DIOXIDE,CO2 24.7 mmol/L (21.0-32.0); CHLORIDE,CL 111 mmol/L (98-107); GLUCOSE RANDOM 101 mg/dL (74-106); POTASSIUM,K 4.3 mmol/L (3.5-5.1); SODIUM,NA 146 mmol/L (136-145)
[2019-05-16] MEDS ORDERED: Levothyroxine 150 MCG Tab PO SCH (07:00)
[2019-05-16] MEDS ORDERED: Famotidine 20 MG Tab PO SCH (07:30)
[2019-05-16 07:46] VITALS: BP 98/64; PULSE 65
[2019-05-16] MEDS: Topiramate 100 MG Tab PO SCH (08:48)
[2019-05-16] MEDS: Pregabalin 50 MG Cap PO SCH (08:49)
[2019-05-16] MEDS ORDERED: buPROPion 150 MG Tab.ER PO SCH (09:00)
[2019-05-16] MEDS ORDERED: FLUoxetine 20 MG Cap PO SCH (09:00)
[2019-05-16] MEDS ORDERED: Oxybutynin 5 MG Tab PO SCH (09:00)
[2019-05-16] MEDS ORDERED: Aspirin 325 MG Tab PO SCH (09:00)
[2019-05-16] MEDS ORDERED: Polyethylene Glycol 3350 Powder 17 GM Packet PO SCH (09:00)
[2019-05-16] MEDS ORDERED: METHYLPHENIDATE HCL 30 MG PO SCH (09:00)
[2019-05-16] MEDS ORDERED: Celecoxib 100 MG Cap PO SCH (09:00)
--- NOTE | 2019-05-16 11:07 | PCM.DCSUM1 ---
Discharge Summary - Hospital Course HPI Initial Comments: 54 yo female left knee primary oa Diagnosis: Stroke: No - Discharge Data Discharge Date: 05/16/19 Discharge Disposition: Home, Self-Care 01 Condition: Good - Referral to Home Health Primary Care Physician: Luis Traylor MD - Patient Summary/Data Operative Procedure(s) Performed: left tka Complications: none Consults: Consultations 05/15/19 14:05 Consult to Physician [CONS] Routine PT Evaluation and Treatment [CONS] Routine - Patient Instructions Diet: Usual Diet as Tolerated Activity: Apply Ice (ice knee via [place] Ice machine), Elevate Extremity ( place pillows under foot to elevate leg), Full Weight Bearing, No Strenuous Activities Driving: Do Not Drive Driving, Other: no driving while taking narcotic medication Showering/Bathing: May Shower, No Tub Bathing/Swimming (do not soak in a bathtub , hot tub or pool until incision well healed.) Showering/Bathing, Other: may shower with aquacell dressing on Wound/Incision Care: Keep Operative Site/Wound Site Clean and Dry Wound/Incision, Other: remove aquacell dressing on , then replace daily Notify Provider of: Fever, Increased Pain, Swelling and Redness, Drainage, Nausea and/or Vomiting Other/Special Instructions: Plese wear your MANDY hose at home, putting them on in the morning and removing just before going to bed, to minimize swelling in operative leg and helps with blood clot prevention. - Discharge Plan *PRESCRIPTION DRUG MONITORING PROGRAM REVIEWED*: Yes *COPY OF PRESCRIPTION DRUG MONITORING REPORT IN PATIENT MINA: No Prescriptions/Med Rec: Acetaminophen/oxyCODONE [Percocet 325-5 MG] 1 tab PO Q6H PRN #56 tablet PRN Reason: Pain Aspirin 325 mg PO DAILY #21 tablet Gabapentin [Neurontin] 300 mg PO TID #90 cap Home Medications: Home Meds FLUoxetine [PROzac] 80 mg PO QAM 05/30/16 [History] Levothyroxine Sodium [Synthroid] 150 mcg PO QAM 11/08/16 [History] buPROPion HCl [Wellbutrin Xl] 300 mg PO QAM 11/08/16 [History] cloNIDine HCl [Catapres] 0.2 mg PO BEDTIME PRN 11/08/16 [History] Pantoprazole [ProTONIX] 40 mg PO ACBREAKFAST #30 tab.cr 11/21/16 [Rx] Methylphenidate HCl [Ritalin] 10 mg PO QPM 05/12/19 [History] Methylphenidate HCl [Ritalin] 30 mg PO QAM 05/12/19 [History] Naloxone HCl [Narcan] 1 spray VENU ASDIRECTED PRN 05/12/19 [History] Oxybutynin Chloride [Ditropan Xl] 10 mg PO DAILY 05/12/19 [History] Pregabalin [Lyrica] 100 mg PO BID 05/12/19 [History] SUMAtriptan Succinate [Imitrex] 100 mg PO ASDIRECTED PRN 05/12/19 [History] Topiramate 100 mg PO BID 05/12/19 [History] buPROPion HCl [Bupropion Xl] 150 mg PO QPM 05/12/19 [History] oxyCODONE HCl/Acetaminophen [Endocet 5-325 Tablet] 1 tab PO Q4H PRN 05/12/19 [ History] Acetaminophen/oxyCODONE [Percocet 325-5 MG] 1 tab PO Q6H PRN #56 tablet [Rx] Aspirin 325 mg PO DAILY #21 tablet 05/16/19 [Rx] Gabapentin [Neurontin] 300 mg PO TID #90 cap 05/16/19 [Rx] Patient Handouts: Total Knee Replacement, Care After, [id number] Referrals: Ben Bateman DO [Physician] - 06/05/19 10:00 am - Discharge Summary/Plan Comment DC Time >30 min.: No - General Info Date of Service: 05/16/19 Functional Status: Reports: Pain Controlled, Tolerating Diet, Ambulating, Urinating - Review of Systems General: Reports: No Symptoms HEENT: Reports: No Symptoms Pulmonary: Reports: No Symptoms Cardiovascular: Reports: No Symptoms Gastrointestinal: Reports: No Symptoms Genitourinary: Reports: No Symptoms Musculoskeletal: Reports: Leg Pain, Joint Pain, Joint Swelling Skin: Reports: No Symptoms Neurological: Reports: No Symptoms Psychiatric: Reports: No Symptoms - Patient Data Vitals - Most Recent: Last Vital Signs Temp 36.8 C 05/16/19 07:45 Pulse 65 05/16/19 07:45 Resp 15 05/16/19 07:45 BP 98/64 05/16/19 07:45 Pulse Ox 99 05/16/19 07:45 Weight - Most Recent: 107.501 kg I&O - Last 24 hours: Intake & Output 05/15/19 05/16/19 05/16/19 22:59 06:59 14:59 Intake Total 374 2713 Output Total 200 500 Balance 174 2213 Lab Results - Last 24 hrs: Laboratory Results - last 24 hr 05/15/19 05/15/19 05/15/19 Range/Units 10:45 16:10 16:10 WBC 5.93 (4.0-11.0) K/uL RBC 4.16 L (4.30-5.90) M/uL Hgb 11.7 L (12.0-16.0) g/dL Hct 36.7 (36.0-46.0) % MCV 88.2 (80.0-98.0) fL MCH 28.1 (27.0-32.0) pg MCHC 31.9 (31.0-37.0) g/dL RDW Std Deviation 51.9 (28.0-62.0) fl RDW Coeff of Mehrdad 16 H (11.0-15.0) % Plt Count 215 (150-400) K/uL MPV 9.60 (7.40-12.00) fL Neut % (Auto) 71.1 (48.0-80.0) % Lymph % (Auto) 20.4 (16.0-40.0) % [place] % (Auto) 7.4 (0.0-15.0) % Eos % (Auto) 0.8 (0.0-7.0) % Baso % (Auto) 0.3 (0.0-1.5) % Neut # (Auto) 4.2 (1.4-5.7) K/uL Lymph # (Auto) 1.2 (0.6-2.4) K/uL [place] # (Auto) 0.4 (0.0-0.8) K/uL Eos # (Auto) 0.1 (0.0-0.7) K/uL Baso # (Auto) 0.0 (0.0-0.1) K/uL Nucleated RBC % 0.0 /100WBC Nucleated RBCs # 0 K/uL Sodium 147 H (136-145) mmol/L Potassium 3.8 (3.5-5.1) mmol/L Chloride 112 H (98-107) mmol/L Carbon Dioxide 24.3 (21.0-32.0) mmol/L BUN 14 (7.0-18.0) mg/dL Creatinine 1.0 (0.6-1.0) mg/dL Est Cr Clr Drug Dosing TNP Estimated GFR (MDRD) 57.8 ml/min Glucose 185 H (74-106) mg/dL Calcium 8.7 (8.5-10.1) mg/dL Magnesium 2.0 (1.8-2.4) mg/dL Blood Type O POSITIVE Antibody Screen NEGATIVE 05/16/19 05/16/19 Range/Units 05:55 05:55 WBC (4.0-11.0) K/uL RBC (4.30-5.90) M/uL Hgb 10.9 L (12.0-16.0) g/dL Hct 34.2 L (36.0-46.0) % MCV (80.0-98.0) fL MCH (27.0-32.0) pg MCHC (31.0-37.0) g/dL RDW Std Deviation (28.0-62.0) fl RDW Coeff of Mehrdad (11.0-15.0) % Plt Count (150-400) K/uL MPV (7.40-12.00) fL Neut % (Auto) (48.0-80.0) % Lymph % (Auto) (16.0-40.0) % [place] % (Auto) (0.0-15.0) % Eos % (Auto) (0.0-7.0) % Baso % (Auto) (0.0-1.5) % Neut # (Auto) (1.4-5.7) K/uL Lymph # (Auto) (0.6-2.4) K/uL [place] # (Auto) (0.0-0.8) K/uL Eos # (Auto) (0.0-0.7) K/uL Baso # (Auto) (0.0-0.1) K/uL Nucleated RBC % /100WBC Nucleated RBCs # K/uL Sodium 146 H (136-145) mmol/L Potassium 4.3 (3.5-5.1) mmol/L Chloride 111 H (98-107) mmol/L Carbon Dioxide 24.7 (21.0-32.0) mmol/L BUN 19 H (7.0-18.0) mg/dL Creatinine 1.1 H (0.6-1.0) mg/dL Est Cr Clr Drug Dosing TNP Estimated GFR (MDRD) 51.8 ml/min Glucose 101 (74-106) mg/dL Calcium 8.6 (8.5-10.1) mg/dL Magnesium 2.1 (1.8-2.4) mg/dL Blood Type Antibody Screen Med Orders - Current: Current Medications Al Hydroxide/Mg Hydroxide (Mag-Al Plus) 30 ml PO Q4H PRN PRN Reason: Indigestion Aspirin (Aspirin) 325 mg PO DAILY [facility] Last Admin: 05/16/19 08:50 Dose: 325 mg Bisacodyl (Dulcolax) 10 mg RECTAL DAILY PRN PRN Reason: Constipation Bupropion HCl (Wellbutrin Xl) 300 mg PO QAM [facility] Last Admin: 05/16/19 08:48 Dose: 300 mg Bupropion HCl (Wellbutrin Xl) 150 mg PO QPM [facility] Last Admin: 05/15/19 17:41 Dose: 150 mg Celecoxib (Celebrex) 200 mg PO DAILY [facility] Last Admin: 05/16/19 08:50 Dose: 200 mg Clonidine HCl (Catapres) 0.2 mg PO BEDTIME PRN PRN Reason: Pain Diphenhydramine HCl (Benadryl) 25 - 50 mg PO Q6H PRN PRN Reason: Itching Docusate Sodium (Colace) 100 mg PO BID PRN PRN Reason: Constipation Famotidine (Pepcid) 40 mg PO ACBREAKFAST [facility] Last Admin: 05/16/19 06:42 Dose: 40 mg Fluoxetine HCl (Prozac) 80 mg PO QAM [facility] Last Admin: 05/16/19 08:49 Dose: 80 mg Lactated Ringer's (Ringers, Lactated) 1,000 mls @ 100 mls/hr IV ASDIRECTED [facility] Last Admin: 05/16/19 01:10 Dose: 100 mls/hr Levothyroxine Sodium (Levothyroxine) 150 mcg PO DAILY@0700 [facility] Last Admin: 05/16/19 06:41 Dose: 150 mcg Morphine Sulfate (Morphine) 1 - 2 mg IVPUSH Q3H PRN PRN Reason: Pain Last Admin: 05/16/19 01:01 Dose: 2 mg Ondansetron HCl (Zofran) 4 mg IVPUSH Q6H PRN PRN Reason: Nausea/Vomiting Oxybutynin Chloride (Oxybutynin) 10 mg PO DAILY [facility] Last Admin: 05/16/19 08:49 Dose: 10 mg Oxycodone/Acetaminophen (Percocet 325-5 Mg) 1 tab PO Q6H PRN PRN Reason: Pain Last Admin: 05/16/19 07:13 Dose: 1 tab Methylphenidate Hcl ([Ritalin] 10 Mg) 1 each PO QPM [facility] Last Admin: 05/15/19 17:46 Dose: Not Given Methylphenidate Hcl ([Ritalin] 30 Mg) 1 each PO QAM [facility] Last Admin: 05/16/19 10:31 Dose: Not Given Polyethylene Glycol (Miralax) 17 gm PO DAILY [facility] Last Admin: 05/16/19 08:50 Dose: 17 gm Pregabalin (Lyrica) 100 mg PO BID [facility] Last Admin: 05/16/19 08:49 Dose: 100 mg Sodium Chloride (Saline Flush) 10 ml FLUSH ASDIRECTED PRN PRN Reason: Keep Vein Open Sodium Chloride (Saline Flush) 2.5 ml FLUSH ASDIRECTED PRN PRN Reason: Keep Vein Open Topiramate (Topamax) 100 mg PO BID [facility] Last Admin: 05/16/19 08:48 Dose: 100 mg Tramadol HCl (Ultram) 50 - 100 mg PO Q6H PRN PRN Reason: Pain Last Admin: 05/16/19 10:41 Dose: 100 mg Discontinued Medications Cefazolin Sodium/Dextrose (Ancef) Confirm Administered Dose 2 gm IV .STK-MED ONE Stop: 05/15/19 11:43 Famotidine (Pepcid) 40 mg IVPUSH ONARRIVE [facility] Last Admin: 05/15/19 11:33 Dose: 40 mg Fentanyl (Sublimaze) Confirm Administered Dose 100 mcg .ROUTE .STK-MED ONE Stop: 05/15/19 11:05 Cefazolin Sodium/Dextrose 2 gm (/ Premix) 50 mls @ 100 mls/hr IV ONCALL [facility] Ropivacaine 49.25 ml/Ketorolac Tromethamine 30 mg/Epinephrine HCl 0.5 mg/ Clonidine HCl 80 mcg/ Sodium Chloride 75 mls @ 50 mls/sec INJECT ASDIRECTED [facility] Cefazolin Sodium/Dextrose 2 gm (/ Premix) 50 mls @ 100 mls/hr IV Q8H [facility] Stop: 05/16/19 05:29 Last Admin: 05/16/19 04:15 Dose: 100 mls/hr Ketorolac Tromethamine (Toradol) 30 mg IVPUSH Q6H [facility] Stop: 05/16/19 05:00 Last Admin: 05/16/19 01:00 Dose: 30 mg Lidocaine (Xylocaine-Mpf 2%) Confirm Administered Dose 5 ml .ROUTE .STK-MED ONE Stop: 05/15/19 11:05 Midazolam HCl (Versed 1 Mg/Ml) Confirm Administered Dose 2 mg .ROUTE .STK-MED ONE Stop: 05/15/19 11:05 Ondansetron HCl (Zofran) Confirm Administered Dose 4 mg .ROUTE .STK-MED ONE Stop: 05/15/19 13:07 Propofol (Diprivan 20 Ml) Confirm Administered Dose 400 mg .ROUTE .STK-MED ONE Stop: 05/15/19 11:05 Scopolamine (Transderm-Scop) 1.5 mg TRDERM ONARRIVE [facility] Last Admin: 05/15/19 11:33 Dose: 1.5 mg Tranexamic Acid (Cyklokapron) 2,000 mg TOP ONETIME ONE Stop: 05/15/19 06:01 Last Admin: 05/15/19 15:32 Dose: Not Given Tranexamic Acid (Cyklokapron) Confirm Administered Dose 1,000 mg .ROUTE .STK- MED ONE Stop: 05/15/19 09:22 - Exam General: Reports: Alert, Oriented, Cooperative, Mild Distress HEENT: Reports: Pupils Equal, Pupils Reactive, EOMI, Mucous Membr. Moist/[place] Neck: Reports: Supple, Trachea Midline Lungs: Reports: Normal Respiratory Effort GI/Abdominal Exam: No Distention Extremities: Leg Pain, Limited Range of Motion Skin: Reports: Warm, Dry, Intact Wound/Incisions: Reports: Healing Well, Dressing Dry and Intact, No Drainage Neurological: Reports: No New Focal Deficit Psy/Mental Status: Reports: Alert, Normal Affect, Normal Mood Discharge Operative/Procedures - Procedures Performed Operations: left tka *Q Meaningful Use (DIS) - VTE *Q VTE Mechanical Contraindications *Q: At Risk for Falls
--- NOTE | 2019-05-16 11:34 | PCM.CONSN ---
- General Info Date of Service: 05/16/19 Subjective Update: Pt. states feeling groggy but no acute pain and or issues; has walked w/ PT ; ambulating well. She is s/p TKA; no acute digns of infection apprecaited. No BM but is eating/drinking w/o incident. Functional Status: Reports: Pain Controlled - Review of Systems General: Denies: Fever, Chills Pulmonary: Denies: Shortness of Breath, Cough Cardiovascular: Denies: Chest Pain, Edema Gastrointestinal: Denies: Abdominal Pain, Constipation, Diarrhea, Nausea, Vomiting Genitourinary: Reports: No Symptoms Musculoskeletal: Reports: No Symptoms Neurological: Denies: Dizziness, Headache Psychiatric: Denies: Confusion - Patient Data Vitals - Most Recent: Last Vital Signs Temp 98.2 F 05/16/19 07:45 Pulse 65 05/16/19 07:45 Resp 15 05/16/19 07:45 BP 98/64 05/16/19 07:45 Pulse Ox 99 05/16/19 07:45 Weight - Most Recent: 237 lb I&O - Last 24 Hours: Intake & Output 05/15/19 05/16/19 05/16/19 22:59 06:59 14:59 Intake Total 374 2713 Output Total 200 500 Balance 174 2213 Lab Results Last 24 Hours: Laboratory Results - last 24 hr 05/15/19 05/15/19 05/15/19 Range/Units 10:45 16:10 16:10 WBC 5.93 (4.0-11.0) K/uL RBC 4.16 L (4.30-5.90) M/uL Hgb 11.7 L (12.0-16.0) g/dL Hct 36.7 (36.0-46.0) % MCV 88.2 (80.0-98.0) fL MCH 28.1 (27.0-32.0) pg MCHC 31.9 (31.0-37.0) g/dL RDW Std Deviation 51.9 (28.0-62.0) fl RDW Coeff of Mehrdad 16 H (11.0-15.0) % Plt Count 215 (150-400) K/uL MPV 9.60 (7.40-12.00) fL Neut % (Auto) 71.1 (48.0-80.0) % Lymph % (Auto) 20.4 (16.0-40.0) % [place] % (Auto) 7.4 (0.0-15.0) % Eos % (Auto) 0.8 (0.0-7.0) % Baso % (Auto) 0.3 (0.0-1.5) % Neut # (Auto) 4.2 (1.4-5.7) K/uL Lymph # (Auto) 1.2 (0.6-2.4) K/uL [place] # (Auto) 0.4 (0.0-0.8) K/uL Eos # (Auto) 0.1 (0.0-0.7) K/uL Baso # (Auto) 0.0 (0.0-0.1) K/uL Nucleated RBC % 0.0 /100WBC Nucleated RBCs # 0 K/uL Sodium 147 H (136-145) mmol/L Potassium 3.8 (3.5-5.1) mmol/L Chloride 112 H (98-107) mmol/L Carbon Dioxide 24.3 (21.0-32.0) mmol/L BUN 14 (7.0-18.0) mg/dL Creatinine 1.0 (0.6-1.0) mg/dL Est Cr Clr Drug Dosing TNP Estimated GFR (MDRD) 57.8 ml/min Glucose 185 H (74-106) mg/dL Calcium 8.7 (8.5-10.1) mg/dL Magnesium 2.0 (1.8-2.4) mg/dL Blood Type O POSITIVE Antibody Screen NEGATIVE 05/16/19 05/16/19 Range/Units 05:55 05:55 WBC (4.0-11.0) K/uL RBC (4.30-5.90) M/uL Hgb 10.9 L (12.0-16.0) g/dL Hct 34.2 L (36.0-46.0) % MCV (80.0-98.0) fL MCH (27.0-32.0) pg MCHC (31.0-37.0) g/dL RDW Std Deviation (28.0-62.0) fl RDW Coeff of Mehrdad (11.0-15.0) % Plt Count (150-400) K/uL MPV (7.40-12.00) fL Neut % (Auto) (48.0-80.0) % Lymph % (Auto) (16.0-40.0) % [place] % (Auto) (0.0-15.0) % Eos % (Auto) (0.0-7.0) % Baso % (Auto) (0.0-1.5) % Neut # (Auto) (1.4-5.7) K/uL Lymph # (Auto) (0.6-2.4) K/uL [place] # (Auto) (0.0-0.8) K/uL Eos # (Auto) (0.0-0.7) K/uL Baso # (Auto) (0.0-0.1) K/uL Nucleated RBC % /100WBC Nucleated RBCs # K/uL Sodium 146 H (136-145) mmol/L Potassium 4.3 (3.5-5.1) mmol/L Chloride 111 H (98-107) mmol/L Carbon Dioxide 24.7 (21.0-32.0) mmol/L BUN 19 H (7.0-18.0) mg/dL Creatinine 1.1 H (0.6-1.0) mg/dL Est Cr Clr Drug Dosing TNP Estimated GFR (MDRD) 51.8 ml/min Glucose 101 (74-106) mg/dL Calcium 8.6 (8.5-10.1) mg/dL Magnesium 2.1 (1.8-2.4) mg/dL Blood Type Antibody Screen Med Orders - Current: Current Medications Al Hydroxide/Mg Hydroxide (Mag-Al Plus) 30 ml PO Q4H PRN PRN Reason: Indigestion Aspirin (Aspirin) 325 mg PO DAILY [facility] Last Admin: 05/16/19 08:50 Dose: 325 mg Bisacodyl (Dulcolax) 10 mg RECTAL DAILY PRN PRN Reason: Constipation Bupropion HCl (Wellbutrin Xl) 300 mg PO QAM [facility] Last Admin: 05/16/19 08:48 Dose: 300 mg Bupropion HCl (Wellbutrin Xl) 150 mg PO QPM [facility] Last Admin: 05/15/19 17:41 Dose: 150 mg Celecoxib (Celebrex) 200 mg PO DAILY [facility] Last Admin: 05/16/19 08:50 Dose: 200 mg Clonidine HCl (Catapres) 0.2 mg PO BEDTIME PRN PRN Reason: Pain Diphenhydramine HCl (Benadryl) 25 - 50 mg PO Q6H PRN PRN Reason: Itching Docusate Sodium (Colace) 100 mg PO BID PRN PRN Reason: Constipation Famotidine (Pepcid) 40 mg PO ACBREAKFAST [facility] Last Admin: 05/16/19 06:42 Dose: 40 mg Fluoxetine HCl (Prozac) 80 mg PO QAM [facility] Last Admin: 05/16/19 08:49 Dose: 80 mg Lactated Ringer's (Ringers, Lactated) 1,000 mls @ 100 mls/hr IV ASDIRECTED [facility] Last Admin: 05/16/19 01:10 Dose: 100 mls/hr Levothyroxine Sodium (Levothyroxine) 150 mcg PO DAILY@0700 [facility] Last Admin: 05/16/19 06:41 Dose: 150 mcg Morphine Sulfate (Morphine) 1 - 2 mg IVPUSH Q3H PRN PRN Reason: Pain Last Admin: 05/16/19 01:01 Dose: 2 mg Ondansetron HCl (Zofran) 4 mg IVPUSH Q6H PRN PRN Reason: Nausea/Vomiting Oxybutynin Chloride (Oxybutynin) 10 mg PO DAILY [facility] Last Admin: 05/16/19 08:49 Dose: 10 mg Oxycodone/Acetaminophen (Percocet 325-5 Mg) 1 tab PO Q6H PRN PRN Reason: Pain Last Admin: 05/16/19 07:13 Dose: 1 tab Methylphenidate Hcl ([Ritalin] 10 Mg) 1 each PO QPM [facility] Last Admin: 05/15/19 17:46 Dose: Not Given Methylphenidate Hcl ([Ritalin] 30 Mg) 1 each PO QAM [facility] Last Admin: 05/16/19 10:31 Dose: Not Given Polyethylene Glycol (Miralax) 17 gm PO DAILY [facility] Last Admin: 05/16/19 08:50 Dose: 17 gm Pregabalin (Lyrica) 100 mg PO BID [facility] Last Admin: 05/16/19 08:49 Dose: 100 mg Sodium Chloride (Saline Flush) 10 ml FLUSH ASDIRECTED PRN PRN Reason: Keep Vein Open Sodium Chloride (Saline Flush) 2.5 ml FLUSH ASDIRECTED PRN PRN Reason: Keep Vein Open Topiramate (Topamax) 100 mg PO BID [facility] Last Admin: 05/16/19 08:48 Dose: 100 mg Tramadol HCl (Ultram) 50 - 100 mg PO Q6H PRN PRN Reason: Pain Last Admin: 05/16/19 10:41 Dose: 100 mg Discontinued Medications Cefazolin Sodium/Dextrose (Ancef) Confirm Administered Dose 2 gm IV .STK-MED ONE Stop: 05/15/19 11:43 Famotidine (Pepcid) 40 mg IVPUSH ONARRIVE [facility] Last Admin: 05/15/19 11:33 Dose: 40 mg Fentanyl (Sublimaze) Confirm Administered Dose 100 mcg .ROUTE .STK-MED ONE Stop: 05/15/19 11:05 Cefazolin Sodium/Dextrose 2 gm (/ Premix) 50 mls @ 100 mls/hr IV ONCALL [facility] Ropivacaine 49.25 ml/Ketorolac Tromethamine 30 mg/Epinephrine HCl 0.5 mg/ Clonidine HCl 80 mcg/ Sodium Chloride 75 mls @ 50 mls/sec INJECT ASDIRECTED [facility] Cefazolin Sodium/Dextrose 2 gm (/ Premix) 50 mls @ 100 mls/hr IV Q8H [facility] Stop: 05/16/19 05:29 Last Admin: 05/16/19 04:15 Dose: 100 mls/hr Ketorolac Tromethamine (Toradol) 30 mg IVPUSH Q6H [facility] Stop: 05/16/19 05:00 Last Admin: 05/16/19 01:00 Dose: 30 mg Lidocaine (Xylocaine-Mpf 2%) Confirm Administered Dose 5 ml .ROUTE .STK-MED ONE Stop: 05/15/19 11:05 Midazolam HCl (Versed 1 Mg/Ml) Confirm Administered Dose 2 mg .ROUTE .STK-MED ONE Stop: 05/15/19 11:05 Ondansetron HCl (Zofran) Confirm Administered Dose 4 mg .ROUTE .ST-MED ONE Stop: 05/15/19 13:07 Propofol (Diprivan 20 Ml) Confirm Administered Dose 400 mg .ROUTE .STK-MED ONE Stop: 05/15/19 11:05 Scopolamine (Transderm-Scop) 1.5 mg TRDERM ONARRIVE [facility] Last Admin: 05/15/19 11:33 Dose: 1.5 mg Tranexamic Acid (Cyklokapron) 2,000 mg TOP ONETIME ONE Stop: 05/15/19 06:01 Last Admin: 05/15/19 15:32 Dose: Not Given Tranexamic Acid (Cyklokapron) Confirm Administered Dose 1,000 mg .ROUTE .STK- MED ONE Stop: 05/15/19 09:22 - Exam General: Alert, Oriented HEENT: EOMI, Mucous Membr. Moist/[place] Lungs: Clear to Auscultation, Normal Respiratory Effort Cardiovascular: Regular Rate, Regular Rhythm GI/Abdominal Exam: Soft, Non-Tender Extremities: Normal Capillary Refill, Other (left knee : wrapping in-situ; no l/ e edema appreciated. no tenderness. ROM intact ; ) Skin: Warm, Dry, Intact Wound/Incisions: Healing Well Psy/Mental Status: Alert, Normal Mood Sepsis Event Note - Evaluation Sepsis Screening Result: No Definite Risk - Focused Exam Vital Signs: Vital Signs Temp Pulse Resp BP Pulse Ox 05/16/19 07:45 98.2 F 65 15 98/64 99 05/16/19 03:40 97.8 F 64 16 104/58 L 97 05/15/19 23:38 97.8 F 76 18 116/52 L 99 Date Exam was Performed: 05/16/19 Time Exam was Performed: 11:39 Consult PN Assessment/Plan Procedures: Procedures ANTINUCLEAR ANTIBODIES (06/09/18) ASSAY OF AMYLASE (11/12/16) ASSAY OF CK (CPK) (11/13/16) ASSAY OF FERRITIN (11/13/16) ASSAY OF FREE THYROXINE (09/25/18) ASSAY OF LIPASE (05/31/18) ASSAY OF MAGNESIUM (11/13/16) ASSAY OF TROPONIN QUANT (10/02/18) ASSAY THYROID STIM HORMONE (01/01/19) C-REACTIVE PROTEIN (06/09/18) CHYLMD TRACH DNA AMP PROBE (01/25/17) COMPLETE CBC W/AUTO DIFF WBC (04/27/19) COMPREHEN METABOLIC PANEL (01/01/19) CT ABD & PELVIS W/O CONTRAST (01/17/18) CULTURE OTHR SPECIMN AEROBIC (04/27/19) DIAGNOSTIC COLONOSCOPY (11/21/16) ECHO EXAM OF ABDOMEN (02/04/18) EGD BIOPSY SINGLE/MULTIPLE (11/21/16) ELECTROCARDIOGRAM TRACING (10/02/18) EMERGENCY DEPT VISIT (10/02/18) EMERGENCY DEPT VISIT (05/31/18) EMERGENCY DEPT VISIT (11/13/17) EMERGENCY DEPT VISIT (06/21/17) EMERGENCY DEPT VISIT (09/07/15) GLYCOSYLATED HEMOGLOBIN TEST (01/25/17) HEPATOBIL SYST IMAGE W/DRUG (02/04/18) HIV-1 AG W/HIV-1 & HIV-2 AB (01/25/17) HYDRATE IV INFUSION ADD-ON (05/31/18) HYDRATION IV INFUSION INIT (05/31/18) IRON BINDING TEST (09/25/18) KNEE ARTHROSCOPY/SURGERY (12/03/16) LYME DISEASE ANTIBODY (11/13/16) MEDICAL NUTRITION INDIV IN (03/20/17) METABOLIC PANEL TOTAL CA (04/27/19) MRI JOINT LWR EXTR W/O&W/DYE (10/12/16) MRI LUMBAR SPINE W/O DYE (06/25/18) N.GONORRHOEAE DNA AMP PROB (01/25/17) PROTHROMBIN TIME (04/27/19) PT EVAL LOW COMPLEX 20 MIN (01/17/17) RBC SED RATE AUTOMATED (06/09/18) RHEUMATOID FACTOR QUANT (06/09/18) RHEUMATOID FACTOR TEST QUAL (06/09/18) ROUTINE VENIPUNCTURE (04/27/19) SPECIAL STAINS GROUP 1 (11/21/16) THER/PROPH/DIAG INJ IV PUSH (11/12/16) THERAPEUTIC EXERCISES (01/17/17) THROMBOPLASTIN TIME PARTIAL (09/25/18) TISSUE EXAM BY PATHOLOGIST (11/21/16) URINALYSIS AUTO W/O SCOPE (04/27/19) URINALYSIS AUTO W/SCOPE (11/12/16) URINE TEST (12/03/16) VITAMIN B-12 (11/13/16) X-RAY EXAM CHEST 1 VIEW (10/02/18) X-RAY EXAM CHEST 2 VIEWS (04/27/19) X-RAY EXAM KNEE 4 OR MORE (10/30/16) X-RAY EXAM L-S SPINE 2/3 VWS (02/17/19) X-RAY EXAM NECK SPINE 2-3 VW (03/06/19) X-RAY EXAM OF KNEE 1 OR 2 (04/03/19) X-RAY EXAM OF KNEE 3 (03/06/19) X-RAY EXAM OF KNEES (01/28/18) Problem List Initiated/Reviewed/Updated: Yes Plan: Assessment: 1. s/p Left TKA : healing well and ambulating well w/ PT Discharge , pain management per primary team 2. PMH: Bipolar, depression/ADD: medications restarted w. no acute issues; scopolamine patch was d/c mehdi-procedure . Doing well. pt endorses being at her baseline w/o issues. Labs and vitals stable.
--- NOTE | 2019-05-16 17:45 | CR ---
Left knee: 2 views of the left knee were obtained. Comparison: Previous left knee exam of 04/03/19. Note: This exam has only now been submitted for final interpretation. Knee prosthesis is noted. Components are aligned. Skin george present. Soft tissue air is noted from the surgical procedure. Impression: 1. Satisfactory postoperative radiographic appearance recently placed left knee prosthesis. Diagnostic code #2 This report was dictated in [place] Standard Time
== END 2019-05-16 13:00 | disposition home or self-care (01) ==
LOC: MW.SDS 10:15 → MW.MS 15:33 → MW.SDS 05-16 13:00
PROVIDERS: ATTEND Orthopaedic Surgery
DX: M17.12 Unilateral primary osteoarthritis, left knee (principal); F41.9 Anxiety disorder, unspecified; F31.9 Bipolar disorder, unspecified; F98.8 Other specified behavioral and emotional disorders with onset usually occurring in childhood and adolescence; N18.9 Chronic kidney disease, unspecified; E03.9 Hypothyroidism, unspecified; G43.909 Migraine, unspecified, not intractable, without status migrainosus; F17.210 Nicotine dependence, cigarettes, uncomplicated; N32.81 Overactive bladder; M35.00 Sjogren syndrome, unspecified; K21.9 Gastro-esophageal reflux disease without esophagitis; E66.9 Obesity, unspecified; Z68.41 Body mass index [BMI] 40.0-44.9, adult; Z79.899 Other long term (current) drug therapy
CPT/HCPCS: 27447; 36415; 51702; 73560; 80048; 83735; 85014; 85018; 85025; 86850; 86900; 86901; 97162; A9270; J0690; J1885; J2001; J2250; J2270; J2405; J2704; J3010; J7120; S0028; J3490

== ENCOUNTER 2019-06-10 14:28 | Observation (INO) | payer MEDICAID, OTHER ==
[~2019-06-10 14:28] MED LIST changes: -Famotidine 20 MG/2 ML SDV IVPUSH SCH; -Ropivacaine 49.25 ML, Ketorolac 30 MG, EPINEPHrine 0.5 MG, cloNIDine 80 MCG in Sodium C... INJECT SCH; -Scopolamine 1.5 MG Transdermal Patch TRDERM SCH; +Sodium Chloride 0.9% 10 ML SDV IV PRN; +Sodium Chloride 0.9% 10 ML Syringe FLUSH PRN; +Sodium Chloride 0.9% 2.5 ML Syringe FLUSH PRN; -ceFAZolin 2 GM in Premix Bag 1 BAG IV SCH
--- NOTE | 2019-06-10 14:35 | EDM.PDOC ---
ED HPI GENERAL MEDICAL PROBLEM - General Chief Complaint: Neuro Symptoms/Deficits Stated Complaint: STROKE CODE Time Seen by Provider: 06/10/19 14:28 Source of Information: Reports: Patient History Limitations: Reports: No Limitations - History of Present Illness INITIAL COMMENTS - FREE TEXT/NARRATIVE: HISTORY AND PHYSICAL: History of present illness: Patient is a 54-year-old female who presents to the ED today via EMS with concern of left-sided tingling sensation that began at 7 this morning. Patient states she woke up at 7 this morning and shortly after that started having numbness and tingling in the back of her left calf and thigh. Patient states she did have surgery on May 15 of her left knee and had a complete total knee replacement. Patient states since then she has had home health who is come to help her with physical therapy of the knee. Patient states that she told home health about her symptoms and called Dr. Traylor who suggested she call EMS for evaluation in the ED. Patient states she also had some numbness of the left arm and left side of the face but denies any focal weakness/general weakness. Patient denies fever, chills, chest pain, shortness of breath, or cough. Denies headache, neck stiff ness, change in vision, syncope, or near syncope. Denies nausea, vomiting, abdominal pain, diarrhea, constipation, or dysuria. Has not noted any blood in urine or stool. Patient has been eating and drinking appropriately. Review of systems: As per history of present illness and below otherwise all systems reviewed and negative. Past medical history: As per history of present illness and as reviewed below otherwise noncontributory. Surgical history: As per history of present illness and as reviewed below otherwise noncontributory. Social history: See social history for further information Family history: As per history of present illness and as reviewed below otherwise noncontributory. Physical exam: General: Patient is alert, oriented, and in no acute distress. Patient laying comfortably on exam table. HEENT: Atraumatic, normocephalic, pupils equal and reactive bilaterally, negative for conjunctival pallor or scleral icterus, mucous membranes moist, TMs normal bilaterally, throat clear, neck supple, nontender, trachea midline. No drooling or trismus noted. No meningeal signs. No hot potato voice noted. Lungs: Clear to auscultation, breath sounds equal bilaterally, chest nontender. Heart: S1S2, regular rate and rhythm without overt murmur Abdomen: Soft, nondistended, nontender. Negative for masses or hepatosplenomegaly. Negative for costovertebral tenderness. Pelvis: Stable nontender. Genitourinary: Deferred. Rectal: Deferred. Skin: Intact, warm, dry. No lesions or rashes noted. Extremities: Atraumatic, negative for cords or calf pain. Neurovascular unremarkable. Neuro: Awake, alert, oriented. Cranial nerves II through XII unremarkable. Cerebellum unremarkable. Motor and sensory unremarkable throughout. Exam nonfocal. Notes: Stroke code was called in route to the ED. Dr. Loo directly involved in patient care. GCS 15. NIH 1 (stated numbness of left side) Dr. Brito was consulted on patient and will admit observation on telemetry. Voices understanding and is agreeable to plan of care. Denies any further questions or concerns at this time. Diagnostics: Head CT, CBC, CMP, UA, EKG, chest x-ray, troponin, TSH, PT/INR, PTT, LE US venous Doppler Therapeutics: saline lock, ASA Impression: Left sided paresthesia r/o TIA Plan: Admit to observation to Dr. Brito on telemetry Definitive disposition and diagnosis as appropriate pending reevaluation and review of above. - Related Data Allergies Allergy/AdvReac Type Severity Reaction Status Date / Time No Known Allergies Allergy Verified 06/10/19 14:29 Home Meds: Home Meds FLUoxetine [PROzac] 80 mg PO QAM 05/30/16 [History] Naloxone HCl [Narcan] 1 spray VENU ASDIRECTED PRN 05/12/19 [History] Oxybutynin Chloride [Ditropan Xl] 10 mg PO DAILY 05/12/19 [History] Pregabalin [Lyrica] 100 mg PO BID 05/12/19 [History] SUMAtriptan Succinate [Imitrex] 100 mg PO ASDIRECTED PRN 05/12/19 [History] Topiramate 100 mg PO BID 05/12/19 [History] buPROPion HCl [Bupropion Xl] 450 mg PO QAM 05/12/19 [History] Amphetamine Sulfate 10 mg PO QAM 06/10/19 [History] Levothyroxine 150 mcg PO ACBREAKFAST 06/10/19 [History] Pregabalin 100 mg PO BID 06/10/19 [History] Past Medical History - Past Health History Medical/Surgical History: Denies Medical/Surgical History HEENT History: Reports: Other (See Below) Other HEENT History: wears glasses, has upper and lower removable partial dentures Cardiovascular History: Reports: None. Denies: Afib, CAD, CT Respiratory History: Reports: None. 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 Denies: CVA Other Neuro History: degenerative disc disease, hx of motion sickness Psychiatric History: Reports: ADD, Anxiety, Bipolar, Depression, Suicidal Ideation Other Psychiatric History: states she frequently thinks of suicide but does counseling and is able to keep it under control Endocrine/Metabolic History: Reports: Hypothyroidism, Obesity/BMI 30+ Hematologic History: Reports: Anemia Immunologic History: Reports: Other (See Below) Other Immunologic History: lupus - Past Surgical History Head Surgeries/Procedures: Reports: None GI Surgical History: Reports: Colonoscopy, EGD Female Surgical History: Reports: Tubal Ligation Neurological Surgical History: Reports: Laminectomy, Lumbar Spine, Spinal Fusion Musculoskeletal Surgical History: Reports: Arthroscopic Knee Social & Family History - Family History Family Medical History: Noncontributory - Caffeine Use Caffeine Use: Reports: Coffee ED ROS GENERAL - Review of Systems Review Of Systems: Comprehensive ROS is negative, except as noted in HPI. ED EXAM, GENERAL - Physical Exam Exam: See Below (See dictation) Course - Vital Signs Last Recorded V/S: Last Vital Signs Temp 98.0 F 06/10/19 14:30 Pulse 56 L 06/10/19 15:28 Resp 18 06/10/19 15:28 BP 99/48 L 06/10/19 15:28 Pulse Ox 96 06/10/19 15:28 - Orders/Labs/Meds Orders: Active Orders 24 hr Category Date Time Status Admission Status [Patient Status] [ADT] Stat ADT 06/10/19 16:06 Ordered Assess Neurological Status [RC] ASDIRECTED Care 06/10/19 14:28 Active Bedrest [RC] ASDIRECTED Care 06/10/19 14:28 Active Blood Glucose Check, Bedside [RC] ONETIME Care 06/10/19 14:28 Active Cardiac Monitoring [RC] . DIRECTED Care 06/10/19 14:28 Active EKG Documentation Completion [RC] STAT Care 06/10/19 14:28 Active Height and Weight [RC] UPON Care 06/10/19 14:28 Active Initiate Acute Stroke Protocol [RC] STAT Care 06/10/19 14:28 Active NIH Stroke Scale [RC] ASDIRECTED Care 06/10/19 14:28 Active Nursing Bedside Swallow Screen [RC] ASDIRECTED Care 06/10/19 14:28 Active Oxygen Therapy [RC] ASDIRECTED Care 06/10/19 14:28 Active Stroke Education, General [RC] Click to Edit Care 06/10/19 14:28 Active Vital Signs [RC] Q15M Care 06/10/19 14:28 Active UA RFX LUI AND CULT IF INDIC [URIN] Stat Lab 06/10/19 14:28 Ordered Sodium Chloride 0.9% [Normal Saline] Med 06/10/19 14:28 Active 10 ml IV ASDIRECTED PRN Sodium Chloride 0.9% [Saline Flush] Med 06/10/19 14:28 Active 10 ml FLUSH ASDIRECTED PRN Sodium Chloride 0.9% [Saline Flush] Med 06/10/19 14:28 Active 2.5 ml FLUSH ASDIRECTED PRN Peripheral IV Insertion Adult [OM.PC] Stat Oth 06/10/19 14:28 Ordered Peripheral IV Insertion Adult [OM.PC] Stat Oth 06/10/19 14:28 Ordered Medication Orders Sodium Chloride (Saline Flush) 10 ml FLUSH ASDIRECTED PRN PRN Reason: Keep Vein Open Sodium Chloride (Saline Flush) 2.5 ml FLUSH ASDIRECTED PRN PRN Reason: Keep Vein Open Sodium Chloride (Normal Saline) 10 ml IV ASDIRECTED PRN PRN Reason: IV Use Labs: Laboratory Tests 06/10/19 06/10/19 06/10/19 Range/Units 14:36 14:36 14:36 WBC 7.84 (4.0-11.0) K/uL RBC 4.20 L (4.30-5.90) M/uL Hgb 12.1 (12.0-16.0) g/dL Hct 37.0 (36.0-46.0) % MCV 88.1 (80.0-98.0) fL MCH 28.8 (27.0-32.0) pg MCHC 32.7 (31.0-37.0) g/dL RDW Std Deviation 51.4 (28.0-62.0) fl RDW Coeff of Mehrdad 16 H (11.0-15.0) % Plt Count 276 (150-400) K/uL MPV 9.70 (7.40-12.00) fL Neut % (Auto) 68.9 (48.0-80.0) % Lymph % (Auto) 23.1 (16.0-40.0) % [place] % (Auto) 5.4 (0.0-15.0) % Eos % (Auto) 2.2 (0.0-7.0) % Baso % (Auto) 0.4 (0.0-1.5) % Neut # (Auto) 5.4 (1.4-5.7) K/uL Lymph # (Auto) 1.8 (0.6-2.4) K/uL [place] # (Auto) 0.4 (0.0-0.8) K/uL Eos # (Auto) 0.2 (0.0-0.7) K/uL Baso # (Auto) 0.0 (0.0-0.1) K/uL Nucleated RBC % 0.0 /100WBC Nucleated RBCs # 0 K/uL INR 0.97 APTT 27.3 (18.6-31.3) SEC Sodium 141 (136-145) mmol/L Potassium 3.9 (3.5-5.1) mmol/L Chloride 108 H (98-107) mmol/L Carbon Dioxide 24.5 (21.0-32.0) mmol/L BUN 17 (7.0-18.0) mg/dL Creatinine 0.9 (0.6-1.0) mg/dL Est Cr Clr Drug Dosing 66.90 mL/min Estimated GFR (MDRD) > 60.0 ml/min Glucose 103 (74-106) mg/dL Calcium 8.8 (8.5-10.1) mg/dL Total Bilirubin 0.4 (0.2-1.0) mg/dL AST 22 (15-37) IU/L ALT 26 (14-63) IU/L Alkaline Phosphatase 103 (46-116) U/L Troponin I < 0.050 (0.000-0.056) ng/mL Total Protein 7.5 (6.4-8.2) g/dL Albumin 3.2 L (3.4-5.0) g/dL Globulin 4.3 H (2.6-4.0) g/dL Albumin/Globulin Ratio 0.7 L (0.9-1.6) TSH 3rd Generation 2.65 (0.36-3.74) uIU/mL Meds: Medications Generic Name Dose Route Start Last Admin Trade Name Freq PRN Reason Stop Dose Admin Sodium Chloride 10 ml 06/10/19 14:28 Saline Flush FLUSH ASDIRECTED PRN Keep Vein Open Sodium Chloride 2.5 ml 06/10/19 14:28 Saline Flush FLUSH ASDIRECTED PRN Keep Vein Open Sodium Chloride 10 ml 06/10/19 14:28 Normal Saline IV ASDIRECTED PRN IV Use Discontinued Medications Generic Name Dose Route Start Last Admin Trade Name Freq PRN Reason Stop Dose Admin Aspirin 324 mg 06/10/19 16:03 Aspirin PO 06/10/19 16:04 ONETIME ONE Departure - Departure Time of Disposition: 16:08 Disposition: Refer to Observation Clinical Impression: Arm paresthesia, left, TIA (transient ischemic attack) - Discharge Information Referrals: PCP,None [Primary Care Provider] - Forms: ED Department Discharge Sepsis Event Note - Focused Exam Vital Signs: Vital Signs Temp Pulse Resp BP Pulse Ox Pulse Ox 06/10/19 15:28 56 L 18 99/48 L 96 06/10/19 15:13 59 L 17 107/50 L 96 06/10/19 14:58 92 22 H 108/70 97 06/10/19 14:43 61 14 109/52 L 97 06/10/19 14:30 98.0 F 78 22 H 119/60 97 06/10/19 14:28 90 24 H 119/60 95 98 Date Exam was Performed: 06/10/19 Time Exam was Performed: 16:07 - My Orders Last 24 Hours: My Active Orders 06/10/19 14:28 Assess Neurological Status [RC] ASDIRECTED Bedrest [RC] ASDIRECTED Blood Glucose Check, Bedside [RC] ONETIME Cardiac Monitoring [RC] . DIRECTED EKG Documentation Completion [RC] STAT Height and Weight [RC] UPON Initiate Acute Stroke Protocol [RC] STAT NIH Stroke Scale [RC] ASDIRECTED Nursing Bedside Swallow Screen [RC] ASDIRECTED Oxygen Therapy [RC] ASDIRECTED Stroke Education, General [RC] Click to Edit Vital Signs [RC] Q15M UA RFX LUI AND CULT IF INDIC [URIN] Stat Sodium Chloride 0.9% [Normal Saline] 10 ml IV ASDIRECTED PRN Sodium Chloride 0.9% [Saline Flush] 10 ml FLUSH ASDIRECTED PRN Sodium Chloride 0.9% [Saline Flush] 2.5 ml FLUSH ASDIRECTED PRN Peripheral IV Insertion Adult [OM.PC] Stat Peripheral IV Insertion Adult [OM.PC] Stat 06/10/19 16:06 Admission Status [Patient Status] [ADT] Stat - Assessment/Plan Last 24 Hours: My Active Orders 06/10/19 14:28 Assess Neurological Status [RC] ASDIRECTED Bedrest [RC] ASDIRECTED Blood Glucose Check, Bedside [RC] ONETIME Cardiac Monitoring [RC] . DIRECTED EKG Documentation Completion [RC] STAT Height and Weight [RC] UPON Initiate Acute Stroke Protocol [RC] STAT NIH Stroke Scale [RC] ASDIRECTED Nursing Bedside Swallow Screen [RC] ASDIRECTED Oxygen Therapy [RC] ASDIRECTED Stroke Education, General [RC] Click to Edit Vital Signs [RC] Q15M UA RFX LUI AND CULT IF INDIC [URIN] Stat Sodium Chloride 0.9% [Normal Saline] 10 ml IV ASDIRECTED PRN Sodium Chloride 0.9% [Saline Flush] 10 ml FLUSH ASDIRECTED PRN Sodium Chloride 0.9% [Saline Flush] 2.5 ml FLUSH ASDIRECTED PRN Peripheral IV Insertion Adult [OM.PC] Stat Peripheral IV Insertion Adult [OM.PC] Stat 06/10/19 16:06 Admission Status [Patient Status] [ADT] Stat
[2019-06-10 15:21] LABS: BLOOD UREA NITROGEN,BUN 17 mg/dL (7.0-18.0); CARBON DIOXIDE,CO2 24.5 mmol/L (21.0-32.0); CHLORIDE,CL 108 mmol/L (98-107); GLUCOSE RANDOM 103 mg/dL (74-106); POTASSIUM,K 3.9 mmol/L (3.5-5.1); SODIUM,NA 141 mmol/L (136-145)
--- NOTE | 2019-06-10 15:25 | CT ---
INDICATION: Stroke code. COMPARISON: None. TECHNIQUE: Noncontrast head CT. FINDINGS: The ventricles and sulci are within normal limits for age. There is no evidence of acute intracranial hemorrhage, edema or mass effect. No abnormal extra-axial collection. The visualized paranasal sinuses and mastoid air cells are clear. No evidence of calvarial fracture. IMPRESSION: No acute intracranial hemorrhage, edema or mass effect. Please note that all CT scans at this facility use dose modulation, iterative reconstruction, and/or weight-based dosing when appropriate to reduce radiation dose to as low as reasonably achievable. Dictated by Yenifer Ceja MD @ Jun 10 2019 3:20PM Signed by Dr. Yenifer Ceja @ Jun 10 2019 3:24PM
--- NOTE | 2019-06-10 15:51 | CR ---
INDICATION: Stroke code. TECHNIQUE: Single portable view of the chest. COMPARISON: Chest radiograph 04/27/2019. FINDINGS: The cardiomediastinal silhouette size is normal. There is no focal pulmonary opacity, pleural effusion or pneumothorax. The visualized osseous structures are unremarkable. IMPRESSION: No acute cardiopulmonary abnormality. Dictated by Yenifer Ceja MD @ Jun 10 2019 3:49PM Signed by Dr. Yenifer Ceja @ Jun 10 2019 3:50PM
--- NOTE | 2019-06-10 15:53 | US ---
INDICATION: Pain. Left total knee arthroplasty 05/15/2019 TECHNIQUE: Ultrasound venous duplex lower left extremity. Compression venous exam was performed using austin scale, color Doppler, and spectral Doppler analysis. COMPARISON: FINDINGS: Sonographic imaging demonstrates the left common femoral, deep femoral, superficial femoral, popliteal, posterior tibial and greater saphenous and the contralateral right common femoral veins to be fully compressible with normal color Doppler blood flow. IMPRESSION: Normal left lower extremity venous ultrasound, no sign of deep venous thrombosis. Dictated by Js Mars MD @ Jun 10 2019 3:50PM Signed by Dr. Js Mars @ Jun 10 2019 3:51PM
[2019-06-10] MEDS ORDERED: Aspirin 81 MG Tab.Chew PO ONE (16:03)
--- NOTE | 2019-06-10 18:38 | PCM.HP.2 ---
H&P History of Present Illness - General Date of Service: 06/10/19 Admit Problem/Dx: Admission Diagnosis/Problem Admission Diagnosis/Problem TIA, Transient ischemic attack - History of Present Illness Initial Comments - Free Text/Narative: 54 yo female who woke up at 7am this morning with left sided numbness. She reports an empty feeling the whole left side of her body head to toe. She denies any muscle weakness, discoordination or speech difficulties. She still retains her sense of touch but it just feels funny. - Related Data Allergies/Adverse Reactions: Allergies Allergy/AdvReac Type Severity Reaction Status Date / Time No Known Allergies Allergy Verified 06/10/19 14:29 Home Medications: Home Meds FLUoxetine [PROzac] 80 mg PO QAM 05/30/16 [History] Naloxone HCl [Narcan] 1 spray VENU ASDIRECTED PRN 05/12/19 [History] Oxybutynin Chloride [Ditropan Xl] 10 mg PO DAILY 05/12/19 [History] Pregabalin [Lyrica] 100 mg PO BID 05/12/19 [History] SUMAtriptan Succinate [Imitrex] 100 mg PO ASDIRECTED PRN 05/12/19 [History] Topiramate 100 mg PO BID 05/12/19 [History] buPROPion HCl [Bupropion Xl] 450 mg PO QAM 05/12/19 [History] Amphetamine Sulfate 10 mg PO QAM 06/10/19 [History] Levothyroxine 150 mcg PO ACBREAKFAST 06/10/19 [History] Pregabalin 100 mg PO BID 06/10/19 [History] Past Medical History - Past Health History Medical/Surgical History: Denies Medical/Surgical History HEENT History: Reports: Other (See Below) Other HEENT History: wears glasses, has upper and lower removable partial dentures Cardiovascular History: Reports: None. Denies: Afib, CAD, [place] Respiratory History: Reports: None. 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 Denies: CVA Other Neuro History: degenerative disc disease, hx of motion sickness Psychiatric History: Reports: ADD, Anxiety, Bipolar, Depression, Suicidal Ideation Other Psychiatric History: states she frequently thinks of suicide but does counseling and is able to keep it under control Endocrine/Metabolic History: Reports: Hypothyroidism, Obesity/BMI 30+ Hematologic History: Reports: Anemia Immunologic History: Reports: Other (See Below) Other Immunologic History: lupus - Past Surgical History Head Surgeries/Procedures: Reports: None GI Surgical History: Reports: Colonoscopy, EGD Female Surgical History: Reports: Tubal Ligation Neurological Surgical History: Reports: Laminectomy, Lumbar Spine, Spinal Fusion Musculoskeletal Surgical History: Reports: Arthroscopic Knee Social & Family History - Family History Family Medical History: Noncontributory - Tobacco Use Smoking Status *Q: Never Smoker Second Hand Smoke Exposure: Yes - Caffeine Use Caffeine Use: Reports: Coffee, Tea Other Caffeine Use: A pot a day. - Recreational Drug Use Recreational Drug Use: No H&P Review of Systems - Review of Systems: Review Of Systems: Comprehensive ROS is negative, except as noted in HPI. Exam - Exam Exam: See Below - Vital Signs Vital Signs: Last Vital Signs Temp 36.7 C 06/10/19 14:30 Pulse 59 L 06/10/19 16:00 Resp 16 06/10/19 16:00 BP 91/34 L 06/10/19 16:00 Pulse Ox 97 06/10/19 16:00 Weight: 99.7 kg - Exam General: Alert, Oriented HEENT: Mucosa Moist & [place] Lungs: Clear to Auscultation, Normal Respiratory Effort Cardiovascular: Regular Rate, Regular Rhythm GI/Abdominal Exam: Normal Bowel Sounds, Soft, Non-Tender Extremities: Non-Tender, No Pedal Edema Skin: Warm, Dry, Intact Neurological: Cranial Nerves Intact, Reflexes Equal Bilateral, Strength Equal Bilateral, Normal Speech, Normal Tone, Sensation Intact. No: Focal Deficit - Patient Data Lab Results Last 24 hrs: Laboratory Results - last 24 hr 06/10/19 06/10/19 06/10/19 Range/Units 14:36 14:36 14:36 WBC 7.84 (4.0-11.0) K/uL RBC 4.20 L (4.30-5.90) M/uL Hgb 12.1 (12.0-16.0) g/dL Hct 37.0 (36.0-46.0) % MCV 88.1 (80.0-98.0) fL MCH 28.8 (27.0-32.0) pg MCHC 32.7 (31.0-37.0) g/dL RDW Std Deviation 51.4 (28.0-62.0) fl RDW Coeff of Mehrdad 16 H (11.0-15.0) % Plt Count 276 (150-400) K/uL MPV 9.70 (7.40-12.00) fL Neut % (Auto) 68.9 (48.0-80.0) % Lymph % (Auto) 23.1 (16.0-40.0) % [place] % (Auto) 5.4 (0.0-15.0) % Eos % (Auto) 2.2 (0.0-7.0) % Baso % (Auto) 0.4 (0.0-1.5) % Neut # (Auto) 5.4 (1.4-5.7) K/uL Lymph # (Auto) 1.8 (0.6-2.4) K/uL [place] # (Auto) 0.4 (0.0-0.8) K/uL Eos # (Auto) 0.2 (0.0-0.7) K/uL Baso # (Auto) 0.0 (0.0-0.1) K/uL Nucleated RBC % 0.0 /100WBC Nucleated RBCs # 0 K/uL INR 0.97 APTT 27.3 (18.6-31.3) SEC Sodium 141 (136-145) mmol/L Potassium 3.9 (3.5-5.1) mmol/L Chloride 108 H (98-107) mmol/L Carbon Dioxide 24.5 (21.0-32.0) mmol/L BUN 17 (7.0-18.0) mg/dL Creatinine 0.9 (0.6-1.0) mg/dL Est Cr Clr Drug Dosing 66.90 mL/min Estimated GFR (MDRD) > 60.0 ml/min Glucose 103 (74-106) mg/dL Calcium 8.8 (8.5-10.1) mg/dL Total Bilirubin 0.4 (0.2-1.0) mg/dL AST 22 (15-37) IU/L ALT 26 (14-63) IU/L Alkaline Phosphatase 103 (46-116) U/L Troponin I < 0.050 (0.000-0.056) ng/mL Total Protein 7.5 (6.4-8.2) g/dL Albumin 3.2 L (3.4-5.0) g/dL Globulin 4.3 H (2.6-4.0) g/dL Albumin/Globulin Ratio 0.7 L (0.9-1.6) TSH 3rd Generation 2.65 (0.36-3.74) uIU/mL Result Diagrams: 06/10/19 14:36 06/10/19 14:36 Sepsis Event Note - Evaluation Sepsis Screening Result: No Definite Risk - Focused Exam Vital Signs: Vital Signs Temp Pulse Resp BP Pulse Ox Pulse Ox 06/10/19 16:00 59 L 16 91/34 L 97 06/10/19 15:45 62 16 94/44 L 93 L 06/10/19 15:28 56 L 18 99/48 L 96 06/10/19 15:13 59 L 17 107/50 L 96 06/10/19 14:58 92 22 H 108/70 97 06/10/19 14:43 61 14 109/52 L 97 06/10/19 14:30 36.7 C 78 22 H 119/60 97 06/10/19 14:28 90 24 H 119/60 95 98 Date Exam was Performed: 06/10/19 Time Exam was Performed: 18:34 Problem List Initiated/Reviewed/Updated: Yes Orders Last 24hrs: Active Orders 24 hr Category Date Time Status Admission Status [Patient Status] [ADT] Stat ADT 06/10/19 16:06 Active Antiembolic Devices [RC] PER UNIT ROUTINE Care 06/10/19 18:33 Ordered Assess Neurological Status [RC] ASDIRECTED Care 06/10/19 14:28 Active Bedrest [RC] ASDIRECTED Care 06/10/19 14:28 Active Blood Glucose Check, Bedside [RC] ONETIME Care 06/10/19 14:28 Active EKG Documentation Completion [RC] STAT Care 06/10/19 14:28 Active Height and Weight [RC] UPON Care 06/10/19 14:28 Active Initiate Acute Stroke Protocol [RC] STAT Care 06/10/19 14:28 Active NIH Stroke Scale [RC] ASDIRECTED Care 06/10/19 14:28 Active Nursing Bedside Swallow Screen [RC] ASDIRECTED Care 06/10/19 14:28 Active Oxygen Therapy [RC] ASDIRECTED Care 06/10/19 14:28 Active Oxygen Therapy [RC] PRN Care 06/10/19 18:32 Ordered Stroke Education, General [RC] Click to Edit Care 06/10/19 14:28 Active Telemetry Monitoring [Cardiac Monitoring] [RC] . Care 06/10/19 16:54 Active DIRECTED Up ad Marci [RC] ASDIRECTED Care 06/10/19 18:32 Ordered VTE/DVT Education [RC] PER UNIT ROUTINE Care 06/10/19 18:32 Ordered Vital Signs [RC] Q4H Care 06/10/19 18:32 Ordered Regular Diet [DIET] Diet 06/10/19 Breakfast Ordered Brain w wo Cont [MR] Routine Exams 06/10/19 18:28 Ordered BASIC METABOLIC PANEL,BMP [CHEM] AM Lab 06/11/19 05:11 Ordered CBC WITH AUTO DIFF [HEME] Routine Lab 06/10/19 18:32 Ordered GLYCOSYLATED HEMOGLOBIN,HGBA1C [CHEM] AM Lab 06/11/19 05:11 Ordered LIPID PANEL [CHEM] Routine Lab 06/10/19 18:33 Ordered UA RFX LUI AND CULT IF INDIC [URIN] Stat Lab 06/10/19 14:28 Ordered FLUoxetine [PROzac] Med 06/11/19 09:00 Ordered 80 mg PO QAM Levothyroxine Med 06/11/19 07:30 Ordered 150 mcg PO ACBREAKFAST Pregabalin Med 06/10/19 21:00 Ordered 100 mg PO BID Sodium Chloride 0.9% [Normal Saline] Med 06/10/19 14:28 Active 10 ml IV ASDIRECTED PRN Sodium Chloride 0.9% [Saline Flush] Med 06/10/19 14:28 Active 10 ml FLUSH ASDIRECTED PRN Sodium Chloride 0.9% [Saline Flush] Med 06/10/19 14:28 Active 2.5 ml FLUSH ASDIRECTED PRN buPROPion [Wellbutrin XL] Med 06/11/19 09:00 Ordered 450 mg PO QAM Peripheral IV Insertion Adult [OM.PC] Stat Oth 06/10/19 14:28 Ordered Peripheral IV Insertion Adult [OM.PC] Stat Oth 06/10/19 14:28 Ordered Sequential Compression Device [OM.PC] Per Unit Routine Oth 06/10/19 18:32 Ordered Resuscitation Status Routine Resus Stat 06/10/19 18:32 Ordered Medication Orders Bupropion HCl (Wellbutrin Xl) 450 mg PO QAM ANGEL Fluoxetine HCl (Prozac) 80 mg PO QAM ANGEL Levothyroxine Sodium (Levothyroxine) 150 mcg PO ACBREAKFAST ANGEL Pregabalin (Lyrica) 100 mg PO BID ANGEL Sodium Chloride (Saline Flush) 10 ml FLUSH ASDIRECTED PRN PRN Reason: Keep Vein Open Sodium Chloride (Saline Flush) 2.5 ml FLUSH ASDIRECTED PRN PRN Reason: Keep Vein Open Sodium Chloride (Normal Saline) 10 ml IV ASDIRECTED PRN PRN Reason: IV Use Assessment/Plan Comment:: 54 yo female admitted for left hemiparesthesia. We will monitor overnight on telemetry. MRI of brain has been ordered.
[2019-06-10] MEDS: Pregabalin 50 MG Cap PO SCH (21:23)
[2019-06-11] MEDS ORDERED: Sodium Chloride 0.9% 1,000 ML IV SCH (02:45)
[2019-06-11] MEDS: Acetaminophen/oxyCODONE 325-10 MG Tab PO PRN ×2 (03:08→17:54)
[2019-06-11 06:35] LABS: CARBON DIOXIDE,CO2 26.2 mmol/L (21.0-32.0); POTASSIUM,K 4.3 mmol/L (3.5-5.1)
[2019-06-11 06:43] LABS: HEMOGLOBIN A1C 5.8 % (4.5-6.2)
[2019-06-11] MEDS: Levothyroxine 150 MCG Tab PO SCH ×2 (08:06→10:23)
[2019-06-11] MEDS: Pregabalin 50 MG Cap PO SCH (08:06)
[2019-06-11] MEDS ORDERED: FLUoxetine 20 MG Cap PO SCH (09:00)
[2019-06-11] MEDS ORDERED: buPROPion 150 MG Tab.ER PO SCH (09:00)
[2019-06-11] MEDS ORDERED: Gadobenate Dimeglumine 529 MG/ML 20 ML SDV IVPUSH STA (09:24)
[2019-06-11] MEDS ORDERED: Baclofen 10 MG Tab PO ONE (12:13)
--- NOTE | 2019-06-11 14:48 | MR ---
EXAM DATE: 06/10/19 PATIENT'S AGE: 54 Patient: JEB REGALADO Facility: [facility] Site Site : 1965 Study: MRI-Head W/ and W/O Cont [id number]/[id number] 10:17:25 AM Ordering Physician: ALLAN FRAZIER Final Report: INDICATION: Left-sided numbness. TECHNIQUE: Brain MRI with contrast. The following sequences were obtained: DWI and ADC mapping sequences. Axial FLAIR and RK T2 weighted sequences. SWI sequence. 3D T1 weighted precontrast and post-contrast sequences. 20 cc MultiHance gadolinium based contrast agent was used. COMPARISON: CT head from 06/10/2019. FINDINGS: No acute infarct or hemorrhage. No pathologic intracranial enhancement or signal abnormality. White-matter within normal limits for age. No mass effect or herniation. No hydrocephalus or extra-axial collections. The pituitary gland , parasellar structures and optic chiasm are normal. Posterior fossa is normal. All the major intracranial vascular structures demonstrate normal flow-related signal. The orbital contents are normal. Ill-defined FLAIR hyperintense lesion within the right frontal calvarium, technically indeterminate as no fat saturated T1 weighted sequences were acquired. However, a hemangioma is favored. Left TMJ arthropathy. No obstructive sinus disease. No extracranial soft tissue findings. IMPRESSION: 1. No acute intracranial abnormalities, including no evidence of acute infarction, intracranial hemorrhage or mass effect. 2. No mass or pathologic intracranial enhancement. No pathologic intracranial signal abnormality. 3. Nonaggressive appearing FLAIR hyperintense bone marrow signal abnormality within the right frontal calvarium. Favor a hemangioma. 4. Left TMJ arthropathy. Dictated by Levy Horton MD @ Jun 11 2019 10:18AM Signed by: Levy Horton MD @06/11/2019 10:29:01 AM (Electronic Signature) Report Signed by Proxy. HUDSON
[2019-06-11 16:42] VITALS: BP 122/65; PULSE 71
--- NOTE | 2019-06-11 17:41 | PCM.DCSUM1 ---
Discharge Summary - Hospital Course Free Text/Narrative:: 54 yo female with PMH of anxiety, depression, recent left knee surgery, came in for evaluation of left sided numbness. She reported an empty feeling the whole left side of her body head to toe. She denies any muscle weakness, discoordinate or speech difficulties. Patient was admitted to rule out stroke, CT scan head was negative, MRI brain was obtained with was negative for acute stroke . Lipid prfile was unremarkable, HbA1c was normal. Patient is medically stable for d/c to home and asked to f.u with her PCP - Discharge Data Discharge Date: 06/11/19 Discharge Disposition: Home, Self-Care 01 Condition: Fair - Referral to Home Health Primary Care Physician: PCP None - Discharge Diagnosis/Problem(s) (1) Arm paresthesia, left SNOMED Code(s): 65751812952899186 ICD Code: R20.2 - PARESTHESIA OF SKIN Status: Acute Current Visit: Yes (2) Anxiety and depression SNOMED Code(s): 044489473 ICD Code: F41.9 - ANXIETY DISORDER, UNSPECIFIED; F32.9 - MAJOR DEPRESSIVE DISORDER, SINGLE EPISODE, UNSPECIFIED Status: Acute Current Visit: No - Discharge Plan *PRESCRIPTION DRUG MONITORING PROGRAM REVIEWED*: No *COPY OF PRESCRIPTION DRUG MONITORING REPORT IN PATIENT [place]: No Home Medications: Home Meds FLUoxetine [PROzac] 80 mg PO QAM 05/30/16 [History] Naloxone HCl [Narcan] 1 spray VENU ASDIRECTED PRN 05/12/19 [History] Oxybutynin Chloride [Ditropan Xl] 10 mg PO DAILY 05/12/19 [History] SUMAtriptan Succinate [Imitrex] 100 mg PO ASDIRECTED PRN 05/12/19 [History] Topiramate 100 mg PO BID 05/12/19 [History] buPROPion HCl [Bupropion Xl] 450 mg PO QAM 05/12/19 [History] Levothyroxine 150 mcg PO ACBREAKFAST 06/10/19 [History] Pregabalin 100 mg PO BID 06/10/19 [History] Dextroamphetamine/Amphetamine [Adderall 10 mg Tablet] 10 mg PO QPM 06/11/19 [ History] Dextroamphetamine/Amphetamine [Adderall 10 mg Tablet] 30 mg PO DAILY 06/11/19 [ History] oxyCODONE HCl/Acetaminophen [Percocet 10-325 mg Tablet] 1 each PO Q6H PRN [History] Oxygen Therapy Mode: Room Air Patient Handouts: Transient Ischemic Attack Referrals: Luis Traylor MD [Physician] - 06/19/19 9:00 am - Discharge Summary/Plan Comment DC Time >30 min.: No - Patient Data Vitals - Most Recent: Last Vital Signs Temp 36.6 C 06/11/19 16:00 Pulse 71 06/11/19 16:00 Resp 20 06/11/19 16:00 BP 122/65 06/11/19 16:00 Pulse Ox 98 06/11/19 16:00 Weight - Most Recent: 99.7 kg I&O - Last 24 hours: Intake & Output 06/11/19 06/11/19 06/11/19 06:59 14:59 22:59 Intake Total 950 480 Output Total 400 Balance 950 80 Lab Results - Last 24 hrs: Laboratory Results - last 24 hr 06/10/19 06/10/19 06/11/19 Range/Units 18:58 18:58 06:10 WBC 6.11 (4.0-11.0) K/uL RBC 4.01 L (4.30-5.90) M/uL Hgb 11.5 L (12.0-16.0) g/dL Hct 35.4 L (36.0-46.0) % MCV 88.3 (80.0-98.0) fL MCH 28.7 (27.0-32.0) pg MCHC 32.5 (31.0-37.0) g/dL RDW Std Deviation 51.7 (28.0-62.0) fl RDW Coeff of Mehrdad 16 H (11.0-15.0) % Plt Count 269 (150-400) K/uL MPV 9.80 (7.40-12.00) fL Neut % (Auto) 58.9 (48.0-80.0) % Lymph % (Auto) 29.3 (16.0-40.0) % [place] % (Auto) 7.9 (0.0-15.0) % Eos % (Auto) 3.4 (0.0-7.0) % Baso % (Auto) 0.5 (0.0-1.5) % Neut # (Auto) 3.6 (1.4-5.7) K/uL Lymph # (Auto) 1.8 (0.6-2.4) K/uL [place] # (Auto) 0.5 (0.0-0.8) K/uL Eos # (Auto) 0.2 (0.0-0.7) K/uL Baso # (Auto) 0.0 (0.0-0.1) K/uL Nucleated RBC % 0.0 /100WBC Nucleated RBCs # 0 K/uL Sodium 142 (136-145) mmol/L Potassium 4.3 (3.5-5.1) mmol/L Chloride 107 (98-107) mmol/L Carbon Dioxide 26.2 (21.0-32.0) mmol/L BUN 18 (7.0-18.0) mg/dL Creatinine 1.0 (0.6-1.0) mg/dL Est Cr Clr Drug Dosing 60.21 mL/min Estimated GFR (MDRD) 57.8 ml/min Glucose 95 (74-106) mg/dL Hemoglobin A1c (4.5-6.2) % Calcium 8.9 (8.5-10.1) mg/dL Triglycerides 57 (0-200) mg/dL Cholesterol 133 (50-200) mg/dL LDL Cholesterol, Calc 53 L (60-180) mg/dL VLDL Cholesterol 11 (5-55) mg/dL HDL Cholesterol 69 H (40-60) mg/dL Cholesterol/HDL Ratio 1.9 L (3.3-6.0) Urine Color Urine Appearance Urine pH (5.0-8.0) Ur Specific [place] (1.001-1.035) Urine Protein (NEGATIVE) mg/dL Urine Glucose (UA) (NEGATIVE) mg/dL Urine Ketones (NEGATIVE) mg/dL Urine Occult Blood (NEGATIVE) Urine Nitrite (NEGATIVE) Urine Bilirubin (NEGATIVE) Urine Urobilinogen (<2.0) EU/dL Ur Leukocyte Esterase (NEGATIVE) 06/11/19 06/11/19 Range/Units 06:10 06:35 WBC (4.0-11.0) K/uL RBC (4.30-5.90) M/uL Hgb (12.0-16.0) g/dL Hct (36.0-46.0) % MCV (80.0-98.0) fL MCH (27.0-32.0) pg MCHC (31.0-37.0) g/dL RDW Std Deviation (28.0-62.0) fl RDW Coeff of Mehrdad (11.0-15.0) % Plt Count (150-400) K/uL MPV (7.40-12.00) fL Neut % (Auto) (48.0-80.0) % Lymph % (Auto) (16.0-40.0) % [place] % (Auto) (0.0-15.0) % Eos % (Auto) (0.0-7.0) % Baso % (Auto) (0.0-1.5) % Neut # (Auto) (1.4-5.7) K/uL Lymph # (Auto) (0.6-2.4) K/uL [place] # (Auto) (0.0-0.8) K/uL Eos # (Auto) (0.0-0.7) K/uL Baso # (Auto) (0.0-0.1) K/uL Nucleated RBC % /100WBC Nucleated RBCs # K/uL Sodium (136-145) mmol/L Potassium (3.5-5.1) mmol/L Chloride (98-107) mmol/L Carbon Dioxide (21.0-32.0) mmol/L BUN (7.0-18.0) mg/dL Creatinine (0.6-1.0) mg/dL Est Cr Clr Drug Dosing mL/min Estimated GFR (MDRD) ml/min Glucose (74-106) mg/dL Hemoglobin A1c 5.8 (4.5-6.2) % Calcium (8.5-10.1) mg/dL Triglycerides (0-200) mg/dL Cholesterol (50-200) mg/dL LDL Cholesterol, Calc (60-180) mg/dL VLDL Cholesterol (5-55) mg/dL HDL Cholesterol (40-60) mg/dL Cholesterol/HDL Ratio (3.3-6.0) Urine Color YELLOW Urine Appearance HAZY Urine pH 6.0 (5.0-8.0) Ur Specific [place] 1.020 (1.001-1.035) Urine Protein NEGATIVE (NEGATIVE) mg/dL Urine Glucose (UA) NEGATIVE (NEGATIVE) mg/dL Urine Ketones NEGATIVE (NEGATIVE) mg/dL Urine Occult Blood NEGATIVE (NEGATIVE) Urine Nitrite NEGATIVE (NEGATIVE) Urine Bilirubin NEGATIVE (NEGATIVE) Urine Urobilinogen 0.2 (<2.0) EU/dL Ur Leukocyte Esterase NEGATIVE (NEGATIVE) Med Orders - Current: Current Medications Bupropion HCl (Wellbutrin Xl) 450 mg PO QAM [facility] Last Admin: 06/11/19 08:06 Dose: 450 mg Fluox[facility]) [facility] [facility] Admin: 06/11/19 08:06 Dose: 80 mg Sodium Chloride (Normal Saline) 1,000 mls @ 100 mls/hr IV ASDIRECTED [facility] Last Admin: 06/11/19 03:11 Dose: 100 mls/hr Levothyroxine Sodium (Levothyroxine) 150 mcg PO ACBREAKFAST [facility] Last Admin: 06/11/19 10:23 Dose: 150 mcg Oxycodone/Acetaminophen (Percocet 325-10 Mg) 1 tab PO Q6H PRN PRN Reason: Pain Last Admin: 06/11/19 03:08 Dose: 1 tab Pregabalin (Lyrica) 100 mg PO BID [facility] Last Admin: 06/11/19 08:06 Dose: 100 mg Sodium Chloride (Saline Flush) 10 ml FLUSH ASDIRECTED PRN PRN Reason: Keep Vein Open Sodium Chloride (Saline Flush) 2.5 ml FLUSH ASDIRECTED PRN PRN Reason: Keep Vein Open Sodium Chloride (Normal Saline) 10 ml IV ASDIRECTED PRN PRN Reason: IV Use Discontinued Medications Aspirin (Aspirin) 324 mg PO ONETIME ONE Stop: 06/10/19 16:04 Last Admin: 06/10/19 16:13 Dose: 324 mg Baclofen (Lioresal) 10 mg PO ONETIME ONE Stop: 06/11/19 12:14 Last Admin: 06/11/19 12:35 Dose: 10 mg Gadobenate Dimeglumine (Multihance) 20 ml IVPUSH ONETIME STA Stop: 06/11/19 09:25 Last Admin: 06/11/19 09:28 Dose: 20 ml
== END 2019-06-11 19:00 | disposition home or self-care (01) ==
LOC: MW.ED 14:28 → MW.MS 16:17
PROVIDERS: ADMIT Internal Medicine; ATTEND Internal Medicine
DX: R20.2 Paresthesia of skin (principal); F41.9 Anxiety disorder, unspecified; F31.9 Bipolar disorder, unspecified; E03.9 Hypothyroidism, unspecified; K21.9 Gastro-esophageal reflux disease without esophagitis; G43.909 Migraine, unspecified, not intractable, without status migrainosus; M19.90 Unspecified osteoarthritis, unspecified site; E66.9 Obesity, unspecified; Z68.35 Body mass index [BMI] 35.0-35.9, adult
CPT/HCPCS: 36415; 70450; 70553; 71045; 80048; 80053; 80061; 81003; 83036; 84443; 84484; 85025; 85610; 85730; 93005; 93971; 99285; A9270; A9577; J7030; G0378

== ENCOUNTER 2019-10-08 11:08 | Emergency (ER) | payer MEDICAID ==
[2019-10-08] MEDS ORDERED: Diazepam 2 MG Tab PO ONE (11:50)
[2019-10-08] MEDS ORDERED: Doxycycline 100 MG Cap PO ONE (11:50)
--- NOTE | 2019-10-08 11:57 | EDM.PDOC ---
ED HPI GENERAL MEDICAL PROBLEM - General Chief Complaint: Neuro Symptoms/Deficits Stated Complaint: TINGLING SENSATION LT SIDE; Time Seen by Provider: 10/08/19 11:30 - History of Present Illness INITIAL COMMENTS - FREE TEXT/NARRATIVE: HISTORY AND PHYSICAL: History of present illness: 54-year-old female with a significant past medical history of thyroid dysfunction, urinary bladder spasm, depression, anxiety, and autoimmune disorder unclear if it is rheumatoid arthritis or lupus. She has had a pretty significant work-up as an outpatient for her abnormal neuro symptoms that wax and wane. This is included a CT of the brain, MRI of the brain and spine, and consultation to rheumatology. She comes in today with vague symptoms of intermittent left-sided pain, sometimes pain across the face, and an unusual pain sensation that goes from one leg up around into the pelvis and down the other leg. No urinary changes. Normally walks with a cane. No other infectious symptoms. No persistent one-sided weakness. She also states that she has some intermittent chest pain. This is new for her. She does not relate it to be exertional. Last time known well: The patient is unsure she thinks may be a week ago. The patient also reports that she had a tick on the back of her left calf. She is concerned about this tick bite and was wondering if that caused all of this. Her symptoms began before the tick bite and today she is just nervous about the tick bite. No ringing or head left in the skin. Review of systems: A 10-point review of systems, other than pertinent positives and negatives as stated per HPI, is otherwise negative. Past medical history: As per history of present illness and as reviewed below otherwise noncontributory. Surgical history: As per history of present illness and as reviewed below otherwise noncontributory. Social history: No reported history of drug or alcohol abuse. Family history: As per history of present illness and as reviewed below otherwise noncontributory. Physical exam: VITAL SIGNS: Reviewed. GENERAL: Concerned about her condition but does not appear to be in acute physiologic distress HEAD: No signs of head trauma. EYES: Pupils are equal. Extraocular motions intact. EARS: Hearing grossly intact. MOUTH: Oropharynx is normal. NECK: No adenopathy, no JVD. CHEST: Chest with clear breath sounds bilaterally. No wheezes, rales, or rhonchi. CARDIAC: Regular rate and rhythm. Normal S1 and S2, without murmurs, gallops, or rubs. VASCULAR: Peripheral pulses normal and equal in all extremities. ABDOMEN: Soft, without detectable tenderness. No sign of distention. No rebound or guarding, and no masses palpated. MUSCULOSKELETAL: Good range of motion of all major joints. Extremities without clubbing, cyanosis or edema. NEUROLOGIC EXAM: Alert and oriented x 3. No focal sensory or motor deficits. Speech normal. Follows commands. No nerves II through XII are intact. No dysmetria. PSYCHIATRIC: Mood normal. SKIN: No rash or lesions. Initial Differential Diagnosis & Plan: I considered the following entities in the differential diagnosis: hypoglycemia , electrolyte imbalance, head trauma, intracranial bleed or mass, meningitis sepsis, transient ischemic attack or stroke, toxidrome/intoxication/medication effect, seizure or postictal state, hepatic encephalopathy, acid/base disturbance, hypercapnia. I also considered acute coronary syndrome. I doubt that the patient has an acute Lyme attack. I will place her on doxycycline. I will perform evaluation of labs and EKG and a chest x-ray. I do not think that she needs neuroimaging as she has had CT and MRI in the last 3 months. I do not feel that this would be beneficial today. Definitive disposition and diagnosis as appropriate pending reevaluation and review of above. - Related Data Allergies Allergy/AdvReac Type Severity Reaction Status Date / Time No Known Allergies Allergy Verified 10/08/19 11:35 Home Meds: Home Meds FLUoxetine [PROzac] 80 mg PO QAM 05/30/16 [History] Naloxone HCl [Narcan] 1 spray VENU ASDIRECTED PRN 05/12/19 [History] Oxybutynin Chloride [Ditropan Xl] 10 mg PO DAILY 05/12/19 [History] SUMAtriptan succinate [Imitrex] 100 mg PO ASDIRECTED PRN 05/12/19 [History] Topiramate 100 mg PO BID 05/12/19 [History] buPROPion HCL [Bupropion Xl] 450 mg PO QAM 05/12/19 [History] Levothyroxine 150 mcg PO ACBREAKFAST 06/10/19 [History] Pregabalin 100 mg PO BID 06/10/19 [History] Dextroamphetamine/Amphetamine [Adderall 10 mg Tablet] 10 mg PO QPM 06/11/19 [ History] Dextroamphetamine/Amphetamine [Adderall 10 mg Tablet] 30 mg PO DAILY 06/11/19 [ History] oxyCODONE HCl/Acetaminophen [Percocet 10-325 mg Tablet] 1 each PO Q6H PRN [History] Doxycycline [Vibramycin] 100 mg PO BID 7 Days #14 tab 10/08/19 [Rx] Past Medical History - Past Health History Medical/Surgical History: Denies Medical/Surgical History HEENT History: Reports: Other (See Below) Other HEENT History: wears glasses, has upper and lower removable partial dentures Cardiovascular History: Reports: None Respiratory History: Reports: None Gastrointestinal History: Reports: GERD Genitourinary History: Reports: None [employer] History: Reports: Musculoskeletal History: Reports: Arthritis, Back Pain, Chronic, RA Other Musculoskeletal History: lumbar spinal stenosis Neurological History: Reports: Migraines, Other (See Below) Other Neuro History: degenerative disc disease, hx of motion sickness Psychiatric History: Reports: ADD, Anxiety, Bipolar, Depression, Suicidal Ideation Other Psychiatric History: states she frequently thinks of suicide but does counseling and is able to keep it under control Endocrine/Metabolic History: Reports: Hypothyroidism, Obesity/BMI 30+ Hematologic History: Reports: Anemia Immunologic History: Reports: Other (See Below) Other Immunologic History: lupus - Infectious Disease History Infectious Disease History: Reports: None - Past Surgical History Head Surgeries/Procedures: Reports: None GI Surgical History: Reports: Colonoscopy, EGD Female Surgical History: Reports: Tubal Ligation Neurological Surgical History: Reports: Laminectomy, Lumbar Spine, Spinal Fusion Musculoskeletal Surgical History: Reports: Arthroscopic Knee Social & Family History - Family History Family Medical History: Noncontributory - Tobacco Use Smoking Status *Q: Never Smoker - Caffeine Use Caffeine Use: Reports: Coffee, Soda Other Caffeine Use: A pot a day. - Recreational Drug Use Recreational Drug Use: No ED ROS GENERAL - Review of Systems Review Of Systems: See Below (noted) ED EXAM, NEURO - Physical Exam Exam: See Below (noted) EKG INTERPRETATION EKG Interpretation Comments: 12 lead EKG interpretation Obtained: October 08, 2019 at 11:59 AM Rhythm: Sinus Rate: 68 [place]: Left axis deviation Intervals: Normal ST/T Segments: No acute ischemic changes Interpretation: Sinus rhythm with left axis deviation Course - Vital Signs Last Recorded V/S: Last Vital Signs Temp 96.5 F L 10/08/19 11:31 Pulse 74 10/08/19 11:31 Resp 18 10/08/19 11:31 BP 140/81 10/08/19 11:31 Pulse Ox 99 10/08/19 11:31 - Orders/Labs/Meds Orders: Active Orders 24 hr Category Date Time Status EKG 12 Lead [EKG Documentation Completion] [RC] STAT Care 10/08/19 11:50 Active UA RFX LUI AND CULT IF INDIC [URIN] Stat Lab 10/08/19 11:50 Ordered Labs: Laboratory Tests 10/08/19 10/08/19 Range/Units 12:33 12:33 WBC 4.33 (4.0-11.0) K/uL RBC 4.58 (4.30-5.90) M/uL Hgb 12.5 (12.0-16.0) g/dL Hct 38.9 (36.0-46.0) % MCV 84.9 (80.0-98.0) fL MCH 27.3 (27.0-32.0) pg MCHC 32.1 (31.0-37.0) g/dL RDW Std Deviation 49.7 (28.0-62.0) fl RDW Coeff of Mehrdad 16 H (11.0-15.0) % Plt Count 236 (150-400) K/uL MPV 9.30 (7.40-12.00) fL Neut % (Auto) 65.6 (48.0-80.0) % Lymph % (Auto) 24.0 (16.0-40.0) % [place] % (Auto) 6.9 (0.0-15.0) % Eos % (Auto) 3.0 (0.0-7.0) % Baso % (Auto) 0.5 (0.0-1.5) % Neut # (Auto) 2.8 (1.4-5.7) K/uL Lymph # (Auto) 1.0 (0.6-2.4) K/uL [place] # (Auto) 0.3 (0.0-0.8) K/uL Eos # (Auto) 0.1 (0.0-0.7) K/uL Baso # (Auto) 0.0 (0.0-0.1) K/uL Nucleated RBC % 0.0 /100WBC Nucleated RBCs # 0 K/uL Sodium 142 (136-145) mmol/L Potassium 3.8 (3.5-5.1) mmol/L Chloride 108 H (98-107) mmol/L Carbon Dioxide 25.7 (21.0-32.0) mmol/L BUN 16 (7.0-18.0) mg/dL Creatinine 0.8 (0.6-1.0) mg/dL Est Cr Clr Drug Dosing 75.26 mL/min Estimated GFR (MDRD) > 60.0 ml/min Glucose 101 (74-106) mg/dL Calcium 8.8 (8.5-10.1) mg/dL Troponin I < 0.050 (0.000-0.056) ng/mL Meds: Medications Discontinued Medications Generic Name Dose Route Start Last Admin Trade Name Freq PRN Reason Stop Dose Admin Diazepam 5 mg 10/08/19 11:50 10/08/19 12:33 Valium PO 10/08/19 11:51 5 mg ONETIME ONE Administration Doxycycline Hyclate 200 mg 10/08/19 11:50 10/08/19 12:33 Vibramycin PO 10/08/19 11:51 200 mg ONETIME ONE Administration - Re-Assessments/Exams Free Text/Narrative Re-Assessment/Exam: 10/08/19 13:37 The patient is refusing to provide a urine test. We will discharge her without getting this test. She understands the diagnostic uncertainty that this leaves. She was exposed to a tick so we will give her a course of doxycycline. I will have her follow-up with her doctor for her other chronic problems that do not appear to be acute. She is feeling better after taking the Valium while she was here. Diagnostic impression: 1. Tick bite 2. Lyme disease prophylaxis 3. Chronic vague neurologic symptoms Departure - Departure Time of Disposition: 13:38 Disposition: Home, Self-Care 01 Clinical Impression: Acute Lyme disease, Tick bite of calf, Neurological complaint - Discharge Information *PRESCRIPTION DRUG MONITORING PROGRAM REVIEWED*: Not Applicable *COPY OF PRESCRIPTION DRUG MONITORING REPORT IN PATIENT MINA: Not Applicable Instructions: Tick Bite Information, Adult, [id number], Lyme Disease Referrals: Luis Traylor MD [Primary Care Provider] - Forms: ED Department Discharge Additional Instructions: The following information is given to patients seen in the emergency department who are being discharged to home. This information is to outline your options for follow-up care. We provide all patients seen in our emergency department with a follow-up referral. The need for follow-up, as well as the timing and circumstances, are variable depending upon the specifics of your emergency department visit. If you don't have a primary care physician on staff, we will provide you with a referral. We always advise you to contact your personal physician following an emergency department visit to inform them of the circumstance of the visit and for follow-up with them and/or the need for any referrals to a consulting specialist. The emergency department will also refer you to a specialist when appropriate. This referral assures that you have the opportunity for follow-up care with a specialist. All of these measure are taken in an effort to provide you with optimal care, which includes your follow-up. Thank you for coming to the [facility] urgency department for your care today. It was Dr. Campbell's pleasure to take care of you. Your laboratory evaluation today was normal. You did not want a provide a urine sample for further additional testing. You were exposed to a tick bite and we will give you medication to prevent Lyme disease. Under all circumstances we always encourage you to contact your private physician who remains a resource for coordinating your care. When calling for follow-up care, please make the office aware that this follow-up is from your recent emergency room visit. If for any reason you are refused follow-up, please contact the [facility] Emergency Department at and asked to speak to the emergency department charge nurse. Sepsis Event Note - Evaluation Sepsis Screening Result: No Definite Risk - Focused Exam Vital Signs: Vital Signs Temp Pulse Resp BP Pulse Ox 10/08/19 11:31 96.5 F L 74 18 140/81 99 Date Exam was Performed: 10/08/19 Time Exam was Performed: 13:37 - My Orders Last 24 Hours: My Active Orders 10/08/19 11:50 EKG 12 Lead [EKG Documentation Completion] [RC] STAT UA RFX LUI AND CULT IF INDIC [URIN] Stat - Assessment/Plan Last 24 Hours: My Active Orders 10/08/19 11:50 EKG 12 Lead [EKG Documentation Completion] [RC] STAT UA RFX LUI AND CULT IF INDIC [URIN] Stat
--- NOTE | 2019-10-08 12:31 | CR ---
Chest: 2 views of the chest were obtained. Comparison: Prior chest x-ray of 04/27/19. Heart size and mediastinum are normal. Lungs are clear with no acute parenchymal change. Bony structures appear within normal limits for the patient's age. Impression: 1. No acute intrathoracic process is seen. Diagnostic code #1 This report was dictated in MDT
[2019-10-08 13:15] LABS: BLOOD UREA NITROGEN,BUN 16 mg/dL (7.0-18.0); CARBON DIOXIDE,CO2 25.7 mmol/L (21.0-32.0); CHLORIDE,CL 108 mmol/L (98-107); GLUCOSE RANDOM 101 mg/dL (74-106); POTASSIUM,K 3.8 mmol/L (3.5-5.1); SODIUM,NA 142 mmol/L (136-145)
[2019-10-08 14:22] VITALS: BP 127/91; PULSE 71
== END 2019-10-08 14:45 | disposition home or self-care (01) ==
LOC: MW.ED 11:08
DX: S80.862A Insect bite (nonvenomous), left lower leg, initial encounter (principal); A69.20 Lyme disease, unspecified; R29.818 Other symptoms and signs involving the nervous system; F31.9 Bipolar disorder, unspecified; F41.9 Anxiety disorder, unspecified; E03.9 Hypothyroidism, unspecified; E66.9 Obesity, unspecified; Z68.39 Body mass index [BMI] 39.0-39.9, adult; W57.XXXA Bitten or stung by nonvenomous insect and other nonvenomous arthropods, initial encounter
CPT/HCPCS: 36415; 71046; 80048; 84484; 85025; 93005; 99284; A9270; 99282

== ENCOUNTER 2021-07-23 11:00 | Emergency (ER) | payer MEDICARE, MEDICAID ==
[2021-07-23] MEDS ORDERED: Acetaminophen/HYDROcodone 325-5 MG Tab PO ONE (11:33)
[2021-07-23] MEDS ORDERED: Ibuprofen 600 MG Tab PO ONE (12:37)
[2021-07-23 12:51] VITALS: BP 132/72; PULSE 60
== END 2021-07-23 12:52 | disposition home or self-care (01) ==
LOC: MW.ED 11:00
DX: H92.01 Otalgia, right ear (principal); K21.9 Gastro-esophageal reflux disease without esophagitis; E03.9 Hypothyroidism, unspecified; E66.9 Obesity, unspecified; Z68.39 Body mass index [BMI] 39.0-39.9, adult
CPT/HCPCS: 70450; 99283; A9270